=== PATIENT | female | born 1945 | race Caucasian/White ===

== ENCOUNTER 2019-05-02 14:18 | Inpatient (IN) ==
[2019-05-05] MEDS: Apixaban 5 MG TABLET PO SCH (20:42)
[2019-05-05] MEDS: Nystatin Cream 15 GM TUBE TP SCH (20:43)
[2019-05-06] MEDS: traMADol 50 MG TABLET PO PRN ×3 (00:41→17:52)
[2019-05-06] MEDS: Apixaban 5 MG TABLET PO SCH ×2 (09:23→21:17)
[2019-05-06] MEDS: Aspirin Enteric Coated 81 MG Tablet PO SCH (09:23)
[2019-05-06] MEDS: Diltiazem CD (24hr) 180 MG CAPSULE PO SCH (09:23)
[2019-05-06] MEDS: levoFLOXacin 750 MG TABLET PO SCH (09:23)
[2019-05-06] MEDS: Nystatin Cream 15 GM TUBE TP SCH ×2 (09:31→21:21)
--- NOTE | 2019-05-06 10:29 | Internal Med History&Physical ---
Date of Encounter: 05/06/19 Time of Encounter: 10:29 Assessment and Plan (1) Skin ulcer of left lower leg Current visit: Yes Status: Acute Very large skin ulcer of the left lower extremity there is been there for couple of years and started with some type of trauma. Multiple organisms have been cultured. She is on an oral course of Augmentin and Levaquin for a few more days. Wound care department has given recommendations. The local wound care wi ll be consulted as well. Qualifiers: Non-pressure ulcer stage: with necrosis of muscle Qualified Code(s): L97.923 - Non-pressure chronic ulcer of unspecified part of left lower leg with necrosis of muscle (2) History of atrial fibrillation Current visit: Yes Status: Acute History of atrial fibrillation several years ago as well as a recurrence when she had her pulmonary embolism at [place]. She is now in sinus rhythm. She has no chest pain, angina, congestive heart failure. She is anticoagulated with Eliquis. Her rate is in the 70s. (3) Pulmonary embolism Current visit: Yes Status: Acute Patient sustained a pulmonary embolism while at [place] in the right lower lung area. She is anticoagulated with Eliquis and will plan for long-term treatment. No complications have been noted. Qualifiers: Pulmonary embolism type: other Chronicity: acute Acute cor pulmonale presence: without acute cor pulmonale Qualified Code(s): I26.99 - Other pulmonary embolism without acute cor pulmonale (4) Anxiety Current visit: Yes Status: Acute She admits there are some times when she becomes anxious about her therapy and her future with her current problems. When that occurs she has some chest pressure and some shortness of breath. This was witnessed by the nurse as well. She does not want anything done for this at the present time. We will work through anxiety with her therapy. (5) PAD (peripheral artery disease) Current visit: Yes Status: Chronic Peripheral artery disease but not needing intervention as per vascular specialist. Her left foot looks fishman and dusky but not cold. The ABIs were actually normal on the left and abnormal on the right. She is not having claudication symptoms. (6) Acute kidney injury superimposed on CKD Current visit: Yes Status: Resolved Her renal function has improved and is stabilized now. Her creatinine got up to 2.06 and is now normalized (7) DVT prophylaxis Current visit: Yes Status: Acute She is already on Eliquis for her PE and atrial fibrillation. No further DVT prophylaxis indicated. Internal Medicine - H&P: HPI Chief complaint: I am here for wound care and therapies before going home Admitted From: Hospital to Hospital Transfer Plans for Post Hospital Care: Home History of present illness: Ms. Michel is a 73 year old female was transferred to a a swing bed in our facility with a history of a prolonged skin ulceration on the left lower extremity.Patient has a history in the past of having atrial fibrillation/flutter and congestive heart failure that resolved in 2010. She had heart catheterization which showed mild coronary disease but no intervention needed. She was not seen in our office for the past few years. She has a long-standing ulcer on the left lower extremity which started a couple of years ago likely from chronic venous stasis. 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 It had gotten to the point where it was quite large and painful and she was admitted to the hospital. Wound culture is polymicrobial growing Citrobacter, Providencia, Enterococcus faecalis and another GNR. She was initially treated with cefepime/daptomycin/Flagyl and then IV Zosyn. She is now on oral Augmentin and Levaquin for 7 more days. She was evaluated by podiatry would like to evaluate patient after antibiotics are done and first proceed with a biopsy before debridement. Vascular surgery saw her and said there is no urgent need for intervention but the follow-up as an outpatient if she develops claudication. Prior to plan to discharge of 04/29, she developed shortness of breath and was diagnosed having pulmonary embolism and atrial fibrillation. She has a normal ejection fraction. She was first started on amiodarone and switched to diltiazem. She was started on Eliquis for long-term anticoagulation. She has been in sinus rhythm over the past few days. She denies any angina or CHF symptoms. She states she is very weak and while at [place] was only able to take very few steps and was seldom out of bed. She complains of pain of the left lower extremity during dressing changes. She denies any cardiac or respiratory symptoms currently except when she gets "an anxiety attack" and she has some chest pressure at that time. Past Med Surg Social Fam HX - Past Medical History Medical history: arthritis, atrial fibrillation (History of atrial fibrillation/flutter in 2010 with CHF, then resolved. She had atrial fibrillation at [place] when she had the pulmonary embolism), CHF, coronary artery disease (Mild coronary artery disease without intervention 2010), GERD, hyperlipidemia, hypertension, pulmonary embolus (Pulmonary embolism in the right lower lung area while hospitalized at [place]), renal disease, other Additional medical history: Toni was cardioverted in 2010. Gland in neck was cancerous in 2010. Psychiatric history: no psych history - Past Surgical History Additional surgical history: D&C, Cancerous neck gland removed, tubal ligation, tonsillectomy - Social History Smoking Status: Former smoker Smokeless Tobacco Status: No Alcohol use: none Drug use: none Occupational status: retired Current living situation: Home - Independent, With Family Activity Level: Uses cane/walker Recent Out of Country Travel Within the Last 8 Weeks: No Exposure or Possible Exposure to Illness During Travel: No Additional social history: She and her live in a one-story home. She has 2 steps to get into the house. She has a tub shower that she does not use. - Family History Mother Living Status: Hx Family Cancer: Yes (pancreatic) Father Living Status: Hx Family Cardiac Disorders: Yes Hx Family Cancer: Yes (lung) Internal Medicine - H&P: Meds Aspirin Enteric Coated [Aspirin EC] 81 mg PO DAILY 04/24/19 [History] Atorvastatin [Lipitor] 40 mg PO HS #30 tablet 04/29/19 [Rx] Loperamide [Imodium] 1 mg PO QID PRN #30 udc 04/29/19 [Rx] Nystatin Cream [Mycostatin Cream] 1 appl TP BID 5 Days #1 tube 04/29/19 [Rx] Sodium Bicarbonate 325 mg PO TID #90 tablet 04/29/19 [Rx] Amoxicillin/Clavulanate [Augmentin] 875 mg PO BIDWM 7 Days #14 tablet 05/05/19 [Rx] Apixaban [Eliquis] 5 mg PO BID tablet 05/05/19 [Rx] Diltiazem CD (24hr) [Cardizem CD] 180 mg PO DAILY cap.er.24h 05/05/19 [Rx] Levofloxacin [Levaquin] 750 mg PO DAILY 7 Days #7 tablet 05/05/19 [Rx] Allergy/AdvReac Type Severity Reaction Status Date / Time Cefadroxil [From Duricef] Allergy Rash Verified 04/24/19 17:24 sulfamethoxazole Allergy Rash Verified 04/24/19 17:24 [From Bactrim] trimethoprim [From Bactrim] Allergy Rash Verified 04/24/19 17:24 - Constitutional Constitutional: no fever(s), no falls - EENT Eyes: blurry vision (Complains of some blurred vision in the right eye at times, this side she had Blanton's palsy) Ears: no ear discharge, no ear pain Additional comments: She has an upper denture - Cardiovascular Cardiovascular ROS IM: chest pain (She states sometimes she gets a "chest pain" or tightness particularly if she becomes nervous.), no dyspnea, no dyspnea on exertion - Respiratory Respiratory: dyspnea (Occasion she will get "shortness of breath" if she gets anxious or has a panic attack.), no cough - Gastrointestinal Gastrointestinal: no constipation, no diarrhea, no loose stools, no melena - Genitourinary Genitourinary: urinary incontinence (She states she has some urinary incontinence, urgency, no dysuria) - Musculoskeletal Musculoskeletal ROS IM: no arthralgias, no muscle weakness - Integumentary Additional comments: Very large open skin ulcer in the left lower extremity - Neurological Additional comments: 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 Sometimes her right eye seems blurry - Psychiatric Psychiatric: anxiety (Sometimes she feels anxious, worried that she is not going to do well with therapy), no confusion, no depression - Constitutional Vitals: Temp Pulse Resp BP Pulse Ox 97.8 F 75 20 121/73 94 05/06/19 07:00 05/06/19 07:15 05/06/19 07:15 05/06/19 07:15 05/06/19 07:15 General appearance: Present: morbidly obese, no acute distress - Head Head exam: Present: atraumatic - Eye Eye exam: Present: EOMI Additional comments: Right eyelid shows mild ptosis from Blanton's palsy - ENT Additional comments: She is an upper plate of dentures, missing several lower teeth. - Neck Neck exam general surgery: Absent: lymphadenopathy, tenderness, thyromegaly - Respiratory Respiratory exam: Present: CTAB - Cardiovascular Cardiovascular exam: Present: RRR, +S1, +S2, systolic murmur (1 to 2/6 systolic murmur heard over the outlet as well as radiation to the apex.) - GI/Abdominal GI/Abdominal exam: Present: soft. Absent: tenderness Additional comments: Examination limited because of obesity - Extremities Exam Additional comments: Left lower extremity shows a rather huge deep stage III ulcer which measures about 12-14 cm in the midline morataya almost circumferential around the calf and averaging about 8 cm posteriorly. She has no pedal edema. She has good range of motion at the hips knees and feet. The left foot is dusky in appearance and I cannot appreciate pulses. She has thick curving toenails. And she has debris between her toes. - Neurological Exam Additional comments: She has a slight right facial droop and decreased ability to elevate her right eyebrow/wrinkle forehead. Mild ptosis noted. Mild right facial droop on smile - Psychiatric Psychiatric exam: Present: normal affect - Skin Additional comments: Left lower extremity shows a rather huge deep stage III ulcer which measures about 12-14 cm in the midline morataya almost circumferential around the calf and averaging about 8 cm posteriorly. There is a small band of normal skin on the left lateral morataya area. Areas no odor. There are no linear streaks. There is no significant surrounding redness. Internal Med - H&P Results - Labs Labs: Laboratory from [place] has been reviewed.
[2019-05-07] MEDS: traMADol 50 MG TABLET PO PRN ×5 (01:15→22:31)
[2019-05-07] MEDS: Apixaban 5 MG TABLET PO SCH ×2 (07:54→22:31)
[2019-05-07] MEDS: Aspirin Enteric Coated 81 MG Tablet PO SCH (07:54)
[2019-05-07] MEDS: Nystatin Cream 15 GM TUBE TP SCH ×2 (07:54→22:31)
[2019-05-07] MEDS: Diltiazem CD (24hr) 180 MG CAPSULE PO SCH (07:54)
--- NOTE | 2019-05-07 10:33 | Internal Med Progress Note ---
Date of Encounter: 05/07/19 Time of Encounter: 10:33 - Assessment and plan (1) Skin ulcer of left lower leg Current Visit: Yes Status: Acute Assessment and plan: Skin ulcer of left lower extremity likely started as venous stasis ulcer. Continue treatments per wound clinic recommendation at [facility] as done by the nursing staff. I have asked our local wound care to see her also for advice and will likely see in the future as an outpatient. Had no fevers or chills. Qualifiers: Non-pressure ulcer stage: with necrosis of muscle Qualified Code(s): L97.923 - Non-pressure chronic ulcer of unspecified part of left lower leg with necrosis of muscle (2) History of atrial fibrillation Current Visit: Yes Status: Acute Assessment and plan: Patient had atrial fibrillation while at [place]. She is in normal rhythm and rate controlled with diltiazem and is anticoagulated with Eliquis. No typical angina or CHF symptoms. (3) Pulmonary embolism Current Visit: Yes Status: Acute Assessment and plan: Known right lower lung lung pulmonary embolism. She is not having any dyspnea unless becomes anxious. She is not coughing up blood. Good saturations. Anticoagulated with Eliquis. Qualifiers: Pulmonary embolism type: other Chronicity: acute Acute cor pulmonale presence: without acute cor pulmonale Qualified Code(s): I26.99 - Other pulmonary embolism without acute cor pulmonale (4) Decubitus ulcer of buttock, stage 2 Current Visit: Yes Status: Acute Assessment and plan: Patient has stage II decubitus on the right buttock which measures about 1 cm in diameter. Qualifiers: Laterality: right Qualified Code(s): L89.312 - Pressure ulcer of right buttock, stage 2 (5) Anxiety Current Visit: Yes Status: Acute Assessment and plan: Patient admits that she does get anxious sometimes and he gives her chest pressure and shortness of breath but it is short-lived. She does not want specific intervention right now. She is worried about therapy. (6) PAD (peripheral artery disease) Current Visit: Yes Status: Chronic Assessment and plan: Peripheral artery disease especially on the right side with an abnormal BEULAH. However, amazingly on the left she has a normal BEULAH. The left foot was dusky yesterday but looks good today. I do not feel pulses though. Has been seen by vascular and no intervention for now. (7) Acute kidney injury superimposed on CKD Current Visit: Yes Status: Resolved Assessment and plan: Her creatinine increased to 2.06 at [place], it is now normal. We will continue to follow. (8) Intertriginous candidiasis Current Visit: Yes Status: Acute Assessment and plan: She has intertrigo arsenio infection under her pannus and she prefers antifungal cream. (9) DVT prophylaxis Current Visit: Yes Status: Acute Assessment and plan: Patient is already anticoagulated with Eliquis - Subjective Interval history: Patient states that she feels like she is getting better. She was able to take a few steps in the room yesterday with physical therapy. She has sat up in a chair and uses bedside commode. Sometimes she gets "chest pressure" particularly if she becomes anxious. It is transient. No other related symptoms. - Constitutional Vitals: Temp Pulse Resp BP Pulse Ox 98.0 F 83 15 114/67 95 05/07/19 09:00 05/07/19 09:00 05/07/19 09:00 05/07/19 09:00 05/07/19 09:00 General appearance: Present: A&O X 3, no acute distress - Respiratory Respiratory exam: Present: CTAB - Cardiovascular Cardiovascular exam: Present: RRR, +S1, +S2, systolic murmur (1 to 2/6 systolic murmur at outlet with and radiation to the apex) - GI/Abdominal GI/Abdominal exam: Present: soft. Absent: tenderness - Extremities Exam Additional comments: Left lower extremity is wrapped/dressed. I did not evaluate this today. Both feet are warm and dry. I cannot feel palpable pulses though. Still has long dystrophic nails and debris between her toes. The left foot looks more like the right and not as dusky as yesterday. 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 - Skin Additional comments: Left lower extremity as dressing intact. I did not evaluate today. She has no heel breakdown. The left foot looks similar to the right and not dusky as it did yesterday. Under her pannus she has monilial type dermatitis with satellite lesions. She has a decubitus on the right buttock measuring about 1 cm in diameter covered with Allevyn. Consult Discharge Plan - Plan Referrals: Parker Romero MD [Primary Care Provider] -
--- NOTE | 2019-05-08 08:11 | Internal Med Progress Note ---
Date of Encounter: 05/08/19 Time of Encounter: 08:11 - Assessment and plan (1) Physical deconditioning Current Visit: Yes Status: Acute Assessment and plan: Is here for PT OT (2) Stasis leg ulcer Current Visit: No Status: Acute Assessment and plan: Her wound is currently dressed she is on Augmentin she is on Levaquin she has not had a fever. Qualifiers: Laterality: left Qualified Code(s): I83.029 - Varicose veins of left lower extremity with ulcer of unspecified site; L97.929 - Non-pressure chronic ulcer of unspecified part of left lower leg with unspecified severity (3) DVT prophylaxis Current Visit: Yes Status: Acute Assessment and plan: Eliquis and ambulation (4) Pulmonary embolism Current Visit: Yes Status: Acute Assessment and plan: Currently on Eliquis she does not have any shortness of breath or chest pain Qualifiers: Pulmonary embolism type: other Chronicity: acute Acute cor pulmonale presence: without acute cor pulmonale Qualified Code(s): I26.99 - Other pulmonary embolism without acute cor pulmonale (5) Atrial fibrillation and flutter Current Visit: No Status: Acute Assessment and plan: On diltiazem for rate control she is on Eliquis for thromboembolic prophylaxis. (6) Decubitus ulcer of buttock, stage 2 Current Visit: Yes Status: Acute Assessment and plan: sHe is seeing wound care for this discussed that she does need frequent position changes needs to get up and ambulate with physical therapy to try to keep pressure off her rear Qualifiers: Laterality: right Qualified Code(s): L89.312 - Pressure ulcer of right buttock, stage 2 - Subjective Interval history: She a little shaky and pale when she got up to get to the restroom this morning she felt she could not completely empty her bladder. Postvoid residual showed 7 mL's. She denies any dysuria she does have incontinence she does not like did not bone to the restroom. Staff is struggling to get her to the toilet to prevent incontinence. She denies any pain she has any chest pain she has any palpitations she is short of breath but states that is no more than her normal she denies nausea vomiting she did have a stool. She occasionally gets dizzy she has been eating okay - Constitutional Vitals: Temp Pulse Resp BP Pulse Ox 97.8 F 76 16 115/63 94 05/08/19 07:00 05/08/19 07:00 05/08/19 07:00 05/08/19 07:00 05/08/19 07:00 General appearance: Present: A&O X 3, no acute distress - Head Head exam: Present: atraumatic, normocephalic - Respiratory Respiratory exam: Present: CTAB - Cardiovascular Cardiovascular exam: Present: RRR. Absent: systolic murmur - GI/Abdominal GI/Abdominal exam: Present: normal bowel sounds, soft, no peritoneal signs. Absent: guarding, rebound, tenderness - Extremities Exam Extremities exam: Present: pedal edema (Wound dressing on the left lower extremity. clean and dry) - Skin Skin exam: Present: dry, warm Consult Discharge Plan - Plan Referrals: Parker Romero MD [Primary Care Provider] -
[2019-05-08] MEDS: levoFLOXacin 750 MG TABLET PO SCH (09:12)
[2019-05-08] MEDS: Diltiazem CD (24hr) 180 MG CAPSULE PO SCH (09:12)
[2019-05-08] MEDS: Aspirin Enteric Coated 81 MG Tablet PO SCH (09:13)
[2019-05-08] MEDS: traMADol 50 MG TABLET PO PRN ×3 (09:13→20:42)
[2019-05-08] MEDS: Nystatin Cream 15 GM TUBE TP SCH ×2 (09:13→20:42)
[2019-05-08] MEDS: Apixaban 5 MG TABLET PO SCH ×2 (09:13→20:41)
[2019-05-09] MEDS: traMADol 50 MG TABLET PO PRN ×4 (05:47→20:40)
--- NOTE | 2019-05-09 07:42 | Internal Med Progress Note ---
Date of Encounter: 05/09/19 Time of Encounter: 07:39 - Assessment and plan (1) Skin ulcer of left lower leg Current Visit: Yes Status: Acute Assessment and plan: Continue with wound care. I did not evaluate this today. No secondary problems including heel ulcers or foot issues other than long toenails Qualifiers: Non-pressure ulcer stage: with necrosis of muscle Qualified Code(s): L97.923 - Non-pressure chronic ulcer of unspecified part of left lower leg with necrosis of muscle (2) History of atrial fibrillation Current Visit: Yes Status: Acute Assessment and plan: Staying in regular rate and rhythm. Vital stable. No angina. (3) Pulmonary embolism Current Visit: Yes Status: Acute Assessment and plan: No dyspnea except when exerting herself which may be from deconditioning and obesity. Tolerating her anticoagulant. Good oxygenation on room air Qualifiers: Pulmonary embolism type: other Chronicity: acute Acute cor pulmonale presence: without acute cor pulmonale Qualified Code(s): I26.99 - Other pulmonary embolism without acute cor pulmonale (4) Decubitus ulcer of buttock, stage 2 Current Visit: Yes Status: Acute Assessment and plan: I did not reevaluate this today. Continues with Allevyn Qualifiers: Laterality: right Qualified Code(s): L89.312 - Pressure ulcer of right buttock, stage 2 (5) Anxiety Current Visit: Yes Status: Acute Assessment and plan: Seems to be under reasonable control. She did not mention problems. (6) PAD (peripheral artery disease) Current Visit: Yes Status: Chronic (7) Acute kidney injury superimposed on CKD Current Visit: Yes Status: Resolved (8) Intertriginous candidiasis Current Visit: Yes Status: Acute Assessment and plan: Her skin is still affected, but this does not look red or inflamed it is now more brown and chronic in nature. She states it feels much better (9) DVT prophylaxis Current Visit: Yes Status: Acute - Subjective Interval history: Patient thinks that she is getting better and happy that she is advancing with her therapy. She was able to walk part way to the gym, walked across the floor in the gym and has been sitting up in a chair. She states when she is exerting herself she does get some shortness of breath. When asked about "chest pain" she says she gets a "pressure when she takes a deep breath". Does not sound cardiac or anginal. She has not been using her incentive spirometer. She denies any GI or symptoms. She thinks the tramadol is appropriate for her pain control. - Constitutional Vitals: Temp Pulse Resp BP Pulse Ox 97 F L 84 18 114/65 95 05/08/19 19:15 05/08/19 19:15 05/08/19 19:15 05/08/19 19:15 05/08/19 19:15 General appearance: Present: A&O X 3, no acute distress - Respiratory Additional comments: A few atelectatic crackles in the bases but otherwise clear. No respiratory distress. She takes a deep breath and she feels "chest pressure" which reproduces her symptoms - Cardiovascular Cardiovascular exam: Present: RRR, +S1, +S2, systolic murmur (2/6 systolic murmur) - GI/Abdominal GI/Abdominal exam: Present: soft. Absent: tenderness - Extremities Exam Additional comments: Both feet were evaluated and no heel breakdown. She still has the long dystrophic toenails yet to be trimmed. However her feet are now clean! I did not look at the skin ulcer. Dressing is clean and intact - Skin Additional comments: intertriginous monilial-type dermatitis under her pannus has gone from red and inflamed to now around discolored without acute changes. She states that it feels much better. Consult Discharge Plan - Plan Referrals: Parker Romero MD [Primary Care Provider] -
[2019-05-09] MEDS: Nystatin Cream 15 GM TUBE TP SCH ×2 (09:16→20:37)
[2019-05-09] MEDS: Apixaban 5 MG TABLET PO SCH ×2 (09:17→20:37)
[2019-05-09] MEDS: Aspirin Enteric Coated 81 MG Tablet PO SCH (09:17)
[2019-05-09] MEDS: Diltiazem CD (24hr) 180 MG CAPSULE PO SCH (09:17)
[2019-05-10] MEDS: traMADol 50 MG TABLET PO PRN ×3 (01:35→21:11)
[2019-05-10] MEDS: levoFLOXacin 750 MG TABLET PO SCH (09:05)
[2019-05-10] MEDS: Aspirin Enteric Coated 81 MG Tablet PO SCH (09:05)
[2019-05-10] MEDS: Diltiazem CD (24hr) 180 MG CAPSULE PO SCH (09:05)
[2019-05-10] MEDS: Apixaban 5 MG TABLET PO SCH ×2 (09:05→21:11)
[2019-05-10] MEDS: Nystatin Cream 15 GM TUBE TP SCH ×2 (09:06→21:12)
--- NOTE | 2019-05-10 17:22 | Internal Med Progress Note ---
Date of Encounter: 05/10/19 Time of Encounter: 17:20 - Assessment and plan (1) Skin ulcer of left lower leg Current Visit: Yes Status: Acute Assessment and plan: Wound care consulted with specialist at [facility] and now doing dressing changes every other day. No fever or chills. We will recheck her lab work. 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 No angina or CHF findings. No tachycardia. (3) Pulmonary embolism Current Visit: Yes Status: Acute Assessment and plan: No unusual dyspneic episodes. No hemoptysis. Saturations good. No problems with anticoagulation. Qualifiers: Pulmonary embolism type: other Chronicity: acute Acute cor pulmonale pre sence: without acute cor pulmonale Qualified Code(s): I26.99 - Other pulmonary embolism without acute cor pulmonale (4) Decubitus ulcer of buttock, stage 2 Current Visit: Yes Status: Acute Assessment and plan: Nurse has been evaluating the decubitus and Allevyn is present. I did not reevaluate. Qualifiers: Laterality: right Qualified Code(s): L89.312 - Pressure ulcer of right buttock, stage 2 (5) Anxiety Current Visit: Yes Status: Acute Assessment and plan: Seems be under much better control and gaining confidence with the walking (6) PAD (peripheral artery disease) Current Visit: Yes Status: Chronic (7) Acute kidney injury superimposed on CKD Current Visit: Yes Status: Resolved Assessment and plan: follow-up lab work has been ordered for tomorrow (8) Intertriginous candidiasis Current Visit: Yes Status: Acute (9) DVT prophylaxis Current Visit: Yes Status: Acute - Subjective Interval history: Patient thinks that she is doing well. Physical therapy told me they were proud on how well she was walking today. She is making good progress. She is not having as much fear to walk and she did previously. She told me she is fearful she is going to twist her left ankle as it feels weak sometimes. She denies any cardiac type symptoms. Occasionally she will have a short episode of dyspnea but nothing like what she has had previously. She has been eating fairly well. No fevers or chills. No palpitations or angina. Pain is under adequate control her who is here thinks that she is advancing nicely as he watched her in therapy - Constitutional Vitals: Temp Pulse Resp BP Pulse Ox 98.7 F 69 16 109/65 98 05/10/19 07:31 05/10/19 07:31 05/10/19 07:31 05/10/19 07:31 05/10/19 07:31 General appearance: Present: A&O X 3, no acute distress - Respiratory Respiratory exam: Present: CTAB - Cardiovascular Cardiovascular exam: Present: RRR, +S1, +S2, systolic murmur (1 to 2/6 systolic murmur) - Extremities Exam Additional comments: Left lower extremity has dressing intact and do not wrap to the toes. Toes are warm and dry. Still has very long dystrophic curved nails. Right lower extremity shows no heel breakdown. No redness. No signs of infection. Long curved dystrophic toenails present. Consult Discharge Plan - Plan Referrals: Parker Romero MD [Primary Care Provider] -
[2019-05-11 05:29] LABS: Basophils % 0.8 %; Hematocrit 30.5 % (35.3-44.9); Hemoglobin 9.8 g/dL (11.5-15.4); Immature Granulocytes % 0.5 % (0-4); Lymphocytes % 26.8 %; Mean Corpuscular HGB Conc 32.1 g/dL (31.6-35.5); Mean Corpuscular Volume 87.1 fL (83.0-100.0); Mean Platelet Volume 8.3 fL (9.4-12.4); Monocytes # 0.4 K/mcL (0.0-1.3); Monocytes % 11.9 %; Neutrophils # 2.2 K/mcL (1.6-8.9); Platelet Count 231 K/mcL (140-400); Red Cell Distribution Width 14.8 % (11.5-14.5); White Blood Count 3.7 K/mcL (4.3-11.1)
[2019-05-11 05:41] LABS: Calcium 8.6 mg/dL (8.6-10.3); Potassium 2.9 mEq/L (3.5-5.1)
[2019-05-11] MEDS: Aspirin Enteric Coated 81 MG Tablet PO SCH (08:47)
[2019-05-11] MEDS: Apixaban 5 MG TABLET PO SCH ×2 (08:47→20:20)
[2019-05-11] MEDS: Diltiazem CD (24hr) 180 MG CAPSULE PO SCH (08:47)
[2019-05-11] MEDS: traMADol 50 MG TABLET PO PRN ×4 (08:47→22:37)
[2019-05-11] MEDS: Nystatin Cream 15 GM TUBE TP SCH ×2 (12:17→20:21)
--- NOTE | 2019-05-11 16:23 | Internal Med Progress Note ---
Date of Encounter: 05/11/19 Time of Encounter: 16:21 - Assessment and plan (1) Skin ulcer of left lower leg Current Visit: Yes Status: Acute Assessment and plan: Continuation of large skin ulcer on the left lower extremity. To my eye is looking better. No significant shrinkage in overall size. Less eschar particularly at the ankle region. Still needs some soaking in the periphery over the normal skin to debride off thick devitalized layer of skin. No linear streaks. No surrounding redness or cellulitis noted. Lab work reviewed. Continue wound treatment plan of every other day dressing change and sees Dr. 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 No angina or CHF noted (3) Pulmonary embolism Current Visit: Yes Status: Acute Assessment and plan: Less dyspneic episodes. Good saturation on room air. No lung findings noted. Qualifiers: Pulmonary embolism type: other Chronicity: acute Acute cor pulmonale pres ence: without acute cor pulmonale Qualified Code(s): I26.99 - Other pulmonary embolism without acute cor pulmonale (4) Decubitus ulcer of buttock, stage 2 Current Visit: Yes Status: Acute Assessment and plan: I did not review this today. It has been covered with Allevyn. Qualifiers: Laterality: right Qualified Code(s): L89.312 - Pressure ulcer of right buttock, stage 2 (5) Anxiety Current Visit: Yes Status: Acute Assessment and plan: Less anxiety. Building confidence with her dressing changes and her walking (6) PAD (peripheral artery disease) Current Visit: Yes Status: Chronic (7) Acute kidney injury superimposed on CKD Current Visit: Yes Status: Resolved Assessment and plan: Renal function is now normal. Potassium however is low and supplement started. Not sure the etiology. She does not take a diuretic, her diarrhea has resolved. (8) Intertriginous candidiasis Current Visit: Yes Status: Acute (9) DVT prophylaxis Current Visit: Yes Status: Acute - Subjective Interval history: Patient denies any angina or palpitations. She denies any fevers or chills. She occasionally will have a bit of shortness of breath when she is walking, but overall much better than she did previously. She has not been having the anxiety attacks that she had previously. She denies any abdominal pain. Her bowel movements are normal now. No urinary symptoms. She needs an occasional analgesia particularly during dressing changes for her left lower extremity. She has been up walking today at bit. - Constitutional Vitals: Temp Pulse Resp BP Pulse Ox 98.6 F 80 16 138/71 96 05/11/19 08:42 05/11/19 08:42 05/11/19 08:42 05/11/19 08:42 05/11/19 08:42 General appearance: Present: A&O X 3, no acute distress, answers questions appropriately - Respiratory Respiratory exam: Present: CTAB. Absent: respiratory distress - Cardiovascular Cardiovascular exam: Present: RRR, +S1, +S2, systolic murmur (1/6 systolic murmur) - GI/Abdominal GI/Abdominal exam: Present: soft. Absent: tenderness - Extremities Exam Additional comments: No ankle or pedal edema. The left foot still has somewhat grayish appearance. Skin examination as below - Skin Additional comments: Left lower extremity dressing was removed. The skin edges of the huge ulcer sharp and dry. There is less depth of the wound on the anterior morataya. It is a lot less bright red. There is some granulation tissue. There is has not been a significant decrease in size though. A large eschar area on the right ankle/malleolus area is not cleared off and less than 1 cm superficial ulcer present. No linear streaks. No edema. Patient gave me permission to photograph for comparison. Internal Medicine: Result - Labs CBC & Chem 7: 05/11/19 05:17 05/11/19 05:17 Labs: Short CBC 05/11/19 Range/Units 05:17 WBC 3.7 L (4.3-11.1) K/mcL Hgb 9.8 L (11.5-15.4) g/dL Hct 30.5 L (35.3-44.9) % Plt Count 231 (140-400) K/mcL Neutrophils # 2.2 (1.6-8.9) K/mcL BMP 05/11/19 05:17 Sodium 141 Potassium 2.9 L Chloride 107 Carbon Dioxide 25 BUN 15 Creatinine 1.10 Glucose 104 Calcium 8.6 Laboratory shows low white blood cell count. Her potassium is drifted down to 2.9. Her CRP has gone from 72 down to 25. Consult Discharge Plan - Plan Referrals: Parker Romero MD [Primary Care Provider] -
[2019-05-12] MEDS: Apixaban 5 MG TABLET PO SCH ×2 (08:51→19:43)
[2019-05-12] MEDS: Nystatin Cream 15 GM TUBE TP SCH ×2 (08:51→19:43)
[2019-05-12] MEDS: Diltiazem CD (24hr) 180 MG CAPSULE PO SCH (08:51)
[2019-05-12] MEDS: Aspirin Enteric Coated 81 MG Tablet PO SCH (08:51)
[2019-05-12] MEDS: levoFLOXacin 750 MG TABLET PO SCH (08:51)
[2019-05-12] MEDS: traMADol 50 MG TABLET PO PRN ×2 (09:00→14:43)
--- NOTE | 2019-05-12 14:23 | Internal Med Progress Note ---
Date of Encounter: 05/12/19 Time of Encounter: 14:21 - Assessment and plan (1) Skin ulcer of left lower leg Current Visit: Yes Status: Acute Assessment and plan: Continues with the wound treatment every other day dressing changes. No fevers or chills. Continue same treatment. Sees podiatry tomorrow. 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 No tachycardia or atrial fibrillation findings. (3) Pulmonary embolism Current Visit: Yes Status: Acute Assessment and plan: Her lungs are clear. No significant dyspnea or chest pains. Continues with Eliquis. Qualifiers: Pulmonary embolism type: other Chronicity: acute Acute cor pulmonale pres ence: without acute cor pulmonale Qualified Code(s): I26.99 - Other pulmonary embolism without acute cor pulmonale (4) Decubitus ulcer of buttock, stage 2 Current Visit: Yes Status: Acute Assessment and plan: I did not evaluate today. Managed by the nursing staff and covered with Allevyn Qualifiers: Laterality: right Qualified Code(s): L89.312 - Pressure ulcer of right buttock, stage 2 (5) Anxiety Current Visit: Yes Status: Acute Assessment and plan: Seems to be under good control. (6) PAD (peripheral artery disease) Current Visit: Yes Status: Chronic (7) Acute kidney injury superimposed on CKD Current Visit: Yes Status: Resolved (8) Intertriginous candidiasis Current Visit: Yes Status: Acute (9) Foot pain Current Visit: Yes Status: Acute Assessment and plan: Pain in the medial arch of her foot. No history of trauma. She is still ambulating on it without much difficulty. She sees podiatry tomorrow. No intervention at this time. Qualifiers: Laterality: left Qualified Code(s): M79.672 - Pain in left foot (10) Long toenail Current Visit: Yes Status: Chronic Assessment and plan: She is scheduled to see podiatry tomorrow. Hopefully they will manage her long curved toenails. (11) DVT prophylaxis Current Visit: Yes Status: Acute - Subjective Interval history: Patient denies a cardiac type chest pain or palpitations. She still gets a little bit dyspneic when exerting herself, but much improved from her stay at [facility]. No cough or hemoptysis. She states her left foot is sore today in the instep. No history of trauma or twisting. She has been able to walk on it. - Constitutional Vitals: Temp Pulse Resp BP Pulse Ox 97.9 F 63 16 112/68 95 05/12/19 07:00 05/12/19 07:00 05/12/19 07:00 05/12/19 07:00 05/12/19 07:00 General appearance: Present: A&O X 3, no acute distress, answers questions appropriately - Respiratory Respiratory exam: Present: CTAB - Cardiovascular Cardiovascular exam: Present: RRR, +S1, +S2, systolic murmur (2/6 systolic murmu r) - Extremities Exam Additional comments: Left lower extremity is wrapped in dressing. The foot does not show any significant edema. She is mildly tender over the medial arch area and inferior to the medial malleolus. No deformity per se. No new skin changes or heel breakdown. Internal Medicine: Result - Labs CBC & Chem 7: 05/11/19 05:17 05/11/19 05:17 Consult Discharge Plan - Plan Referrals: Parker Romero MD [Primary Care Provider] -
[2019-05-13] MEDS: traMADol 50 MG TABLET PO PRN ×4 (01:49→20:27)
--- NOTE | 2019-05-13 07:26 | Internal Med Progress Note ---
Date of Encounter: 05/13/19 Time of Encounter: 07:26 - Assessment and plan (1) Skin ulcer of left lower leg Current Visit: Yes Status: Acute Assessment and plan: Continue the topical wound care as directed by the specialist. She has increased her activity level a bit. 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 (3) Pulmonary embolism Current Visit: Yes Status: Acute Assessment and plan: Her dyspnea is improving. Saturations are good. No hemoptysis or cough or chest pains. Continue anticoagulation. Qualifiers: Pulmonary embolism type: other Chronicity: acute Acute cor pulmonale presence: without acute cor pulmonale Qualified Code(s): I26.99 - Other pulmonary embolism without acute cor pulmonale (4) Decubitus ulcer of buttock, stage 2 Current Visit: Yes Status: Acute Assessment and plan: Nurses have been following. I did not check this today. Qualifiers: Laterality: right Qualified Code(s): L89.312 - Pressure ulcer of right buttock, stage 2 (5) Anxiety Current Visit: Yes Status: Acute Assessment and plan: Seems to be improving. Less anticipatory anxiety when doing therapy (6) PAD (peripheral artery disease) Current Visit: Yes Status: Chronic (7) Acute kidney injury superimposed on CKD Current Visit: Yes Status: Resolved (8) Intertriginous candidiasis Current Visit: Yes Status: Acute (9) Foot pain Current Visit: Yes Status: Acute Assessment and plan: She will see the medical laboratory specialist today. Qualifiers: Laterality: left Qualified Code(s): M79.672 - Pain in left foot (10) Long toenail Current Visit: Yes Status: Chronic Assessment and plan: She will see the medical laboratory specialist today. (11) DVT prophylaxis Current Visit: Yes Status: Acute - Subjective Interval history: Patient denies any chest pain, palpitations, irregular heartbeat sensation. She still gets a little dyspneic when she over exerts. Much better than before though. She is due to see the medical laboratory specialist Dr. Dubon today for nail care and hopefully have him look at her wound. - Constitutional Vitals: Temp Pulse Resp BP Pulse Ox 97.2 F L 78 16 132/67 97 05/12/19 19:23 05/12/19 19:23 05/12/19 19:23 05/12/19 19:23 05/12/19 19:23 General appearance: Present: A&O X 3, no acute distress, answers questions appropriately - Respiratory Respiratory exam: Present: CTAB - Cardiovascular Cardiovascular exam: Present: RRR, +S1, +S2, systolic murmur (1 to 2/6 systolic murmur) - GI/Abdominal GI/Abdominal exam: Present: soft. Absent: tenderness - Extremities Exam Extremities exam: Absent: calf tenderness, pedal edema Additional comments: Left lower extremity is wrapped to protect the wound. Her toenails are long and curved and dystrophic. Warm and dry. Internal Medicine: Result - Labs CBC & Chem 7: 05/11/19 05:17 05/13/19 05:20 Labs: BMP 05/13/19 05:20 Potassium 3.1 L Consult Discharge Plan - Plan Referrals: Parker Romero MD [Primary Care Provider] -
[2019-05-13] MEDS: Apixaban 5 MG TABLET PO SCH ×2 (08:08→20:26)
[2019-05-13] MEDS: Diltiazem CD (24hr) 180 MG CAPSULE PO SCH (08:08)
[2019-05-13] MEDS: Aspirin Enteric Coated 81 MG Tablet PO SCH (08:08)
[2019-05-13] MEDS: Nystatin Cream 15 GM TUBE TP SCH ×2 (10:11→20:28)
--- NOTE | 2019-05-13 19:27 | Event Note ---
Date of Encounter: 05/13/19 Time of Encounter: 19:25 I reevaluated the patient tonight. She is happy that she is now able to tolerate going to the toilet rather than using the bedside commode. She feels like she is advancing with her ADLs. She saw the medical record specialist today. She states he was only allowed to trim her toenails and could not attend to her wound because of his credentialing here. She is happy that the toenails have been trimmed. Her feet show her nails have been trimmed nicely. Toes are warm and dry. She is comfortable in bed. Continue with her therapies as well as her wound care
[2019-05-14] MEDS: traMADol 50 MG TABLET PO PRN ×4 (01:59→20:31)
--- NOTE | 2019-05-14 07:37 | Internal Med Progress Note ---
Date of Encounter: 05/14/19 Time of Encounter: 07:35 - Assessment and plan (1) Skin ulcer of left lower leg Current Visit: Yes Status: Acute Assessment and plan: Continue with the wound treatment. Follow up with the wound clinic this Sunday as planned. 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 No angina or CHF noted (3) Pulmonary embolism Current Visit: Yes Status: Acute Assessment and plan: Respiratory status is improving. Lungs are clear. Not requiring oxygen. Stay on anticoagulation. Qualifiers: Pulmonary embolism type: other Chronicity: acute Acute cor pulmonale presence: without acute cor pulmonale Qualified Code(s): I26.99 - Other pulmonary embolism without acute cor pulmonale (4) Decubitus ulcer of buttock, stage 2 Current Visit: Yes Status: Acute Assessment and plan: Nurses report that this is stable and they are keeping it covered with Allevyn Qualifiers: Laterality: right Qualified Code(s): L89.312 - Pressure ulcer of right buttock, stage 2 (5) Anxiety Current Visit: Yes Status: Acute Assessment and plan: She is having less anticipatory anxiety (6) PAD (peripheral artery disease) Current Visit: Yes Status: Chronic (7) Acute kidney injury superimposed on CKD Current Visit: Yes Status: Resolved (8) Intertriginous candidiasis Current Visit: Yes Status: Acute Assessment and plan: Symptomatically she thinks the rash is better. I like to see it be a bit better though. We will switch from nystatin to Chlortrimazole to see if that makes a difference. She has already tried Lotrisone at home. She needs to get more air to this we talked about that and hygiene (9) Foot pain Current Visit: Yes Status: Acute Assessment and plan: She had no complaints of this today. I did not ask. Qualifiers: Laterality: left Qualified Code(s): M79.672 - Pain in left foot (10) Long toenail Current Visit: Yes Status: Chronic (11) DVT prophylaxis Current Visit: Yes Status: Acute - Subjective Interval history: Patient thinks she is doing better. She is not going to the toilet and not needing the bedside commode. She denies any cardiac symptoms of palpitations or angina. She denies any new dyspnea symptoms less she overdoes it but overall improved. No abdominal pain. She thinks the rash in her pannus area is better because it is not burning with use of nystatin compared to her Lotrisone at home. However nursing staff does not think it is not much better. - Constitutional Vitals: Temp Pulse Resp BP Pulse Ox 98.0 F 70 16 121/69 95 05/14/19 07:24 05/14/19 07:24 05/14/19 07:24 05/14/19 07:24 05/14/19 07:24 General appearance: Present: A&O X 3, no acute distress, answers questions appropriately Exam: Patient is sitting up in a chair in no distress. - Respiratory Respiratory exam: Present: CTAB - Cardiovascular Cardiovascular exam: Present: RRR, +S1, +S2, systolic murmur (2/6 systolic murmur) - Extremities Exam Additional comments: I did not check her feet today. I saw them last night. - Skin Additional comments: Still has rather extensive erythema in her pannus area. It looks more dry than it did previously and less inflamed. I do not see any abscesses. Internal Medicine: Result - Labs CBC & Chem 7: 05/11/19 05:17 05/13/19 05:20 Consult Discharge Plan - Plan Referrals: Parker Romeor MD [Primary Care Provider] -
[2019-05-14] MEDS: Aspirin Enteric Coated 81 MG Tablet PO SCH (09:08)
[2019-05-14] MEDS: Apixaban 5 MG TABLET PO SCH ×2 (09:08→20:31)
[2019-05-14] MEDS: Diltiazem CD (24hr) 180 MG CAPSULE PO SCH (09:09)
[2019-05-14] MEDS: levoFLOXacin 750 MG TABLET PO SCH (09:09)
[2019-05-14] MEDS: Clotrimazole 1% CRM 15 GM TUBE TP SCH ×2 (09:39→20:33)
[2019-05-15] MEDS: traMADol 50 MG TABLET PO PRN ×4 (03:03→20:34)
[2019-05-15] MEDS: Diltiazem CD (24hr) 180 MG CAPSULE PO SCH (08:20)
[2019-05-15] MEDS: Apixaban 5 MG TABLET PO SCH ×2 (08:20→20:34)
[2019-05-15] MEDS: Aspirin Enteric Coated 81 MG Tablet PO SCH (08:20)
[2019-05-15] MEDS: Clotrimazole 1% CRM 15 GM TUBE TP SCH ×2 (08:21→20:36)
--- NOTE | 2019-05-15 17:31 | Internal Med Progress Note ---
Date of Encounter: 05/15/19 Time of Encounter: 17:29 - Assessment and plan (1) Skin ulcer of left lower leg Current Visit: Yes Status: Acute Assessment and plan: Continue treatment of the leg ulcer. We will see wound clinic tomorrow and then continue wound care as an outpatient. Lab work has been ordered. 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 Stay on the same medication. (3) Pulmonary embolism Current Visit: Yes Status: Acute Assessment and plan: History of pulmonary embolism. No complications with her anticoagulation. Breathing issues are resolving. Qualifiers: Pulmonary embolism type: other Chronicity: acute Acute cor pulmonale presence: without acute cor pulmonale Qualified Code(s): I26.99 - Other pulmonary embolism without acute cor pulmonale (4) Decubitus ulcer of buttock, stage 2 Current Visit: Yes Status: Acute Assessment and plan: Patient continues with protective dressing on the decubitus ulcer. I did not evaluate today. Nurses report it is stable. Qualifiers: Laterality: right Qualified Code(s): L89.312 - Pressure ulcer of right buttock, stage 2 (5) Anxiety Current Visit: Yes Status: Acute Assessment and plan: Her anxiety seems be under good control. No panic attacks recently. (6) PAD (peripheral artery disease) Current Visit: Yes Status: Chronic (7) Acute kidney injury superimposed on CKD Current Visit: Yes Status: Resolved Assessment and plan: Follow-up lab work ordered for tomorrow (8) Intertriginous candidiasis Current Visit: Yes Status: Acute (9) Foot pain Current Visit: Yes Status: Acute Assessment and plan: Currently no complaints Qualifiers: Laterality: left Qualified Code(s): M79.672 - Pain in left foot (10) Long toenail Current Visit: Yes Status: Resolved (11) DVT prophylaxis Current Visit: Yes Status: Acute - Subjective Interval history: Patient has no acute complaints. She states that she is having less dyspnea wi th activity. She denies any and working with therapy. She denies any cardiac type chest pain or palpitations. She has been ambulatory with physical therapy. She plans to go home after evaluation by the wound clinic tomorrow afternoon if stable. - Constitutional Vitals: Temp Pulse Resp BP Pulse Ox 98.1 F 73 16 129/70 96 05/15/19 07:27 05/15/19 07:27 05/15/19 07:27 05/15/19 07:27 05/15/19 07:27 General appearance: Present: A&O X 3, no acute distress, answers questions appropriately - Respiratory Respiratory exam: Present: decreased breath sounds, CTAB - Cardiovascular Cardiovascular exam: Present: RRR, +S1, +S2, systolic murmur (1 to 2/6 systolic murmur) - GI/Abdominal GI/Abdominal exam: Present: soft. Absent: tenderness - Extremities Exam Additional comments: Right lower extremity is warm and dry and no skin breakdown. No edema. Left lower extremity is wrapped in an [place] wrap. I did not evaluate. Internal Medicine: Result - Labs CBC & Chem 7: 05/11/19 05:17 05/13/19 05:20 Consult Discharge Plan - Plan Referrals: Parker Romero MD [Primary Care Provider] -
--- NOTE | 2019-05-15 21:18 | Discharge Summary ---
- NOTES TO OUTPATIENT PROVIDER Notes to Outpatient Provider: #1. Patient will follow up with the [facility] for care of her left leg. #2. Patient will continue physical therapy as an outpatient. #3. 7 days worth of tramadol has been prescribed. #4. Her potassium was low at discharge and supplement increase to twice a day Date of Encounter: 05/16/19 Time of Encounter: 07:11 - Discharge Diagnosis (1) Skin ulcer of left lower leg Priority: Primary Status: Acute Comments: Patient had sustained an open wound to left lower extremity for about 2 years until became so severe and she became ill and weak and unable to take care of this at home. She was admitted to [place] for initial workup. She had vascular consultation, surgical evaluation at [facility]. Fairly conservative wound treatments were arranged. Culture showed multiple organisms and patient was placed on Augmentin and Levaquin by the time she came to our facility. She had wound treatments and then had PT and OT to advance her ADLs to the point where she can be safely return to home and follow up with the wound clinic as an outpatient. 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 Medically she was converted back to normal sinus rhythm. She has had no angina, palpitation, tachycardia or CHF during this swing bed stay. She is currently on diltiazem and Eliquis. (3) Pulmonary embolism Priority: Secondary Status: Acute Comments: During her hospital stay and [place] patient developed a right lower lung pulmonary embolism. There is been uncomplicated. She is on Eliquis. Her dyspnea with exertion has improved. She has not had any bleeding or bruising issues. Her hemoglobin is lower than baseline and this may be from chronic disease. No obvious acute blood loss as noted. Likely she will need be on anticoagulation for the rest of her life because of the atrial fibrillation as well as a pulmonary embolism. Qualifiers: Pulmonary embolism type: other Chronicity: acute Acute cor pulmonale presence: without acute cor pulmonale Qualified Code(s): I26.99 - Other pulmonary embolism without acute cor pulmonale (4) Decubitus ulcer of buttock, stage 2 Priority: Secondary Status: Acute Comments: Patient was noted to have about a 1 cm diameter decubitus on the buttock. Is been covered with protective dressing. On day of discharge it was reevaluated and it looks markedly improved. Very superficial and healing now. Continues with the Allevyn. Qualifiers: Laterality: right Qualified Code(s): L89.312 - Pressure ulcer of right buttock, stage 2 (5) Anxiety Priority: Secondary Status: Acute Comments: had anticipatory anxiety worried that physical therapy was going to be too much for her to do and also she was quite ill at that time. She has now worked through her anxiety and much improved without needing medical intervention. (6) PAD (peripheral artery disease) Priority: Secondary Status: Chronic Comments: She has documented peripheral vascular disease, interestingly the right lower extremities worse than left. Dr. Smallwood, vascular specialist, recommended no intervention at the present time. Patient has not had any claudication issues. (7) Acute kidney injury superimposed on CKD Priority: Secondary Status: Resolved Comments: She had acute kidney injury which seemed to be resolved. (8) Intertriginous candidiasis Priority: Secondary Status: Acute Comments: She has moderately severe intertriginous candidiasis under her abdominal pannus. She was first treated with nystatin cream, and later switched to Chlortrimazole as it did not seem to be working very well. Patient said the intense redness and pain is gone. She was evaluated on day of discharge and it is markedly improved. (9) Foot pain Priority: Secondary Status: Resolved Qualifiers: Laterality: left Qualified Code(s): M79.672 - Pain in left foot (10) Long toenail Priority: Secondary Status: Resolved Comments: She had very long curved dystrophic toenails being unable to cut them at home. She saw Dr. Mathews while at [facility] and her toenails have now been clipped appropriately. (11) DVT prophylaxis Priority: Secondary Status: Resolved (12) Anemia Priority: Secondary Status: Acute Comments: During her hospitalization at [place] she developed anemia. Her count has been stable in our facility. No melena or hematochezia noted. Workup for anemia labs have been drawn including iron and B12 studies pending at time of discharge. She told me she had a colonoscopy when she was in [place]. Her discharge hemoglobin is 9.8. Qualifiers: Anemia type: unspecified type Qualified Code(s): D64.9 - Anemia, unspecified (13) Hypokalemia Priority: Secondary Status: Acute Comments: At discharge her potassium was 3.0. The increase her supplement to twice a day. We will recheck later as an outpatient Hospital course: Ms. Michel is a 73 year old female who previously did not have a medical problems was admitted to our facility for deconditioning due to severe leg ulcer on the left lower extremity. During the hospital stay at [place] she also developed a pulmonary embolism and transient atrial fibrillation. She came to our facility for wound care treatment as well as PT and OT. She is now advanced to the point where she can be independent with her ADLs and follow-up at the wound clinic regarding her left lower extremity. Please see the above diagnoses. Discharge discussed with: patient, family - Time Spent with Patient Total time spent providing and/or coordinating discharge services: - Discharge Medications Prescriptions: New Clotrimazole 1% CRM [Lotrimin 1%] 1 appl TP BID #90 tube Potassium Chloride 10 meq PO BIDWM #60 tab.er.prt Tramadol HCl [Ultram] 50 mg PO QID PRN 7 Days #28 tab PRN Reason: Pain Continued Aspirin Enteric Coated [Aspirin EC] 81 mg PO DAILY Amoxicillin/Clavulanate [Augmentin] 875 mg PO BIDWM 7 Days #14 tablet Levofloxacin [Levaquin] 750 mg PO DAILY 7 Days #7 tablet Diltiazem CD (24hr) [Cardizem CD] 180 mg PO DAILY #30 cap.er.24h Apixaban [Eliquis] 5 mg PO BID #60 tablet Atorvastatin [Lipitor] 40 mg PO HS #30 tablet Discontinued Loperamide [Imodium] 1 mg PO QID PRN #30 udc PRN Reason: Diarrhea Nystatin Cream [Mycostatin Cream] 1 appl TP BID 5 Days #1 tube Sodium Bicarbonate 325 mg PO TID #90 tablet Home Medications: Aspirin Enteric Coated [Aspirin EC] 81 mg PO DAILY 04/24/19 [History] Amoxicillin/Clavulanate [Augmentin] 875 mg PO BIDWM 7 Days #14 tablet 05/05/19 [Rx] Levofloxacin [Levaquin] 750 mg PO DAILY 7 Days #7 tablet 05/05/19 [Rx] Apixaban [Eliquis] 5 mg PO BID #60 tablet 05/15/19 [Rx] Clotrimazole 1% CRM [Lotrimin 1%] 1 appl TP BID #90 tube 05/15/19 [Rx] Diltiazem CD (24hr) [Cardizem CD] 180 mg PO DAILY #30 cap.er.24h 05/15/19 [Rx] Atorvastatin [Lipitor] 40 mg PO HS #30 tablet 05/16/19 [Rx] Potassium Chloride 10 meq PO BIDWM #60 tab.er.prt 05/16/19 [Rx] Tramadol HCl [Ultram] 50 mg PO QID PRN 7 Days #28 tab 05/16/19 [Rx] Allergies/Adverse Reactions: Allergy/AdvReac Type Severity Reaction Status Date / Time Cefadroxil [From Duricef] Allergy Rash Verified 04/24/19 17:24 sulfamethoxazole Allergy Rash Verified 04/24/19 17:24 [From Bactrim] trimethoprim [From Bactrim] Allergy Rash Verified 04/24/19 17:24 Date of admission: 05/05/19 18:01 Primary care physician: Parker Romero MD Consults: 05/05/19 18:43 Consult to Occupational Therapy [CONS] Routine Comment: eval Reason for Consult: eval and tx Does patient have active BEDREST order?: No Is patient medically & hemodynamically stable?: Yes Consult to Physical Therapy [CONS] Routine Comment: eval Reason for Consult: eval and tx Does patient have active BEDREST order?: No Is patient medically & hemodynamically stable?: Yes Consult to Recreational Therapy [CONS] Routine Comment: Consult to Sec Reporting Consultant [CONS] Routine Reason for SW Consult: d/c planning 05/05/19 20:53 Consult to Nutrition [CONS] Routine Comment: Consulting Provider: NUTRITION Reason for Dietary Consult: Other 05/06/19 10:29 Consult to Wound Care [CONS] Routine Reason for Consult: Evaluate left lower extremity skin ulcer Call Completed: No Discharging clinician: Parker Romero Anticipated date of discharge: 05/16/19 - Constitutional Vitals: Temp Pulse Resp BP Pulse Ox 98.1 F 75 18 116/65 92 05/15/19 18:19 05/15/19 18:19 05/15/19 18:19 05/15/19 18:19 05/15/19 18:19 General appearance: Present: A&O X 3, no acute distress, answers questions appropriately - Respiratory Respiratory exam: Present: CTAB - Cardiovascular Cardiovascular exam: Present: RRR, +S1, +S2, systolic murmur (2/6 systolic murmur) - GI/Abdominal GI/Abdominal exam: Present: soft. Absent: tenderness - Extremities Exam Additional comments: Right lower extremity appears normal. No skin breakdown. No edema. Left lower extremity is in an Unna wrap without signs of drainage. Her toes are warm and dry. - Skin Additional comments: Her intertriginous candidiasis under her large pannus is markedly improved. Still extensive and also radiates onto the left buttock. Still gets improved compared to with nystatin. The decubitus ulcer on the right buttock is gone from deep stage II with sharp edges did not very superficial without drainage and healing well. Still covered with Allevyn - Patient Status Disposition: Home, Self-Care Condition: Fair Functional capacity at discharge: uses cane/walker Overall status at discharge: patient is not back to baseline - Discharge Instructions Follow Up With: Parker Romero MD [Primary Care Provider] - (Since Dr. Romero has seen her during her swing bed stay, she will not need to follow-up in the office immediately. Arrangements will be made at a later date.) - Diet and Activity Activity: as per physical therapy, increase activity as tolerated Diet: advance to your usual diet
[2019-05-16 05:27] LABS: Basophils % 0.9 %; Hematocrit 30.8 % (35.3-44.9); Hemoglobin 9.8 g/dL (11.5-15.4); Immature Granulocytes % 0.3 % (0-4); Lymphocytes % 28.1 %; Mean Corpuscular HGB Conc 31.8 g/dL (31.6-35.5); Mean Corpuscular Hemoglobin 27.9 pg (28.0-33.3); Mean Corpuscular Volume 87.7 fL (83.0-100.0); Mean Platelet Volume 8.8 fL (9.4-12.4); Monocytes # 0.4 K/mcL (0.0-1.3); Monocytes % 12.9 %; Platelet Count 197 K/mcL (140-400); Red Blood Count 3.51 M/mcL (3.82-4.97); Red Cell Distribution Width 14.9 % (11.5-14.5); Segmented Neutrophils % 57.8 %; White Blood Count 3.4 K/mcL (4.3-11.1)
[2019-05-16 05:41] LABS: BUN/Creatinine Ratio 12 (6-26); Blood Urea Nitrogen 13 mg/dL (8-23); Calcium 8.3 mg/dL (8.6-10.3); Carbon Dioxide 26 mEq/L (23-29); Chloride 108 mEq/L (98-107); Glucose 100 mg/dL (70-105); Osmolality,Calculated 292 (280-300); Sodium 141 mEq/L (136-145); eGFR For African Americans > 60 (> 60); eGFR For Non-African Americans 50 (> 60)
[2019-05-16 07:17] VITALS: BP 115/64
[2019-05-16] MEDS: levoFLOXacin 750 MG TABLET PO SCH (08:27)
[2019-05-16] MEDS: Aspirin Enteric Coated 81 MG Tablet PO SCH (08:27)
[2019-05-16] MEDS: Apixaban 5 MG TABLET PO SCH (08:27)
[2019-05-16] MEDS: Diltiazem CD (24hr) 180 MG CAPSULE PO SCH (08:27)
[2019-05-16] MEDS: traMADol 50 MG TABLET PO PRN ×2 (08:28→14:59)
[2019-05-16] MEDS: Clotrimazole 1% CRM 15 GM TUBE TP SCH (08:28)
[2019-05-16 08:45] LABS: % Iron Saturation 15 % (15-50); Iron 44 mcg/dL (50-170); Transferrin 208 mg/dL (203-362)
== END 2019-05-16 15:11 | disposition home or self-care (01) | DRG 592 ==
LOC: INPGRE 05-05 18:01
PROVIDERS: ADMIT Family Medicine; ATTEND Family Medicine

== ENCOUNTER 2019-05-18 11:36 | Observation (INO) ==
[2019-05-18] MEDS ORDERED: 0.9 % Sodium Chloride 1,000 ML IVC ONE (11:58)
--- NOTE | 2019-05-18 12:14 | Emergency Department Note ---
Disposition Clinical Impression: Weakness generalized, Hypokalemia Disposition: Admitted As Inpatient Condition: Fair Referrals: Parker Romero MD [Primary Care Provider] - Time of Disposition: 15:06 Weakness HPI - General Stated complaint: Unable To Walk Time Seen by Provider: 05/18/19 11:41 Source: patient, EMS Mode of arrival: ambulatory Limitations: no limitations Nursing Notes Reviewed: Yes Vital Signs Reviewed: Yes - History of Present Illness HPI Narrative: was discharged from a swing bed here Sunday after rehab. says was able to walk into the house and went to the bathroom but almost fell coming out of the bathroom but caught her. helped her to a chair and that is where she has been since Sunday evening. says legs to weak to hold her up, and arms too weak for her to pull up. no focal weakness, no fall, no fever. she has a venous ulcer on left lower leg that was seen in the wound clinic Sunday and was wrapped in an Unna Boot. no numbness in legs except left leg in the area of the bandage. no urinary symptoms. Dr. Romero had noted on his H&P that she had had some pre-existing weakness and gait difficulty in the hospital. she had a PE and atrial fib but she denies SOB or chest pain now. Pt Subjective Complaint: generalized weakness/fatigue, difficulty ambulating Duration: constant Location: generalized Pain Scale: 0 Improves with: none Worsens with: none Associated symptoms: Reports: denies other symptoms - Related Data Home Medications Medication Instructions Recorded Confirmed Aspirin Enteric Coated [Aspirin EC] 81 mg PO DAILY 04/24/19 05/18/19 Previous Rx's Medication Instructions Recorded Amoxicillin/Clavulanate [Augmentin] 875 mg PO BIDWM 7 Days #14 tablet 05/05/19 Levofloxacin [Levaquin] 750 mg PO DAILY 7 Days #7 tablet 05/05/19 Apixaban [Eliquis] 5 mg PO BID #60 tablet 05/15/19 Clotrimazole 1% CRM [Lotrimin 1%] 1 appl TP BID #90 tube 05/15/19 Diltiazem CD (24hr) [Cardizem CD] 180 mg PO DAILY #30 cap.er.24h 05/15/19 Atorvastatin [Lipitor] 40 mg PO HS #30 tablet 05/16/19 Potassium Chloride 10 meq PO BIDWM #60 tab.er.prt 05/16/19 Tramadol HCl [Ultram] 50 mg PO QID PRN 7 Days #28 tab 05/16/19 Allergies Allergy/AdvReac Type Severity Reaction Status Date / Time Cefadroxil [From Duricef] Allergy Rash Verified 04/24/19 17:24 sulfamethoxazole Allergy Rash Verified 04/24/19 17:24 [From Bactrim] trimethoprim [From Bactrim] Allergy Rash Verified 04/24/19 17:24 Constitutional: Reports: weakness. Denies: fever, chills Eyes: Denies: eye pain, eye discharge ENT ED: Denies: ear pain, throat pain Cardiovascular: Denies: chest pain, palpitations, dyspnea on exertion Respiratory: Denies: cough, dyspnea Gastrointestinal: Denies: abdominal pain, nausea, vomiting Genitourinary: Denies: urgency, dysuria, frequency Musculoskeletal: Reports: back pain. Denies: neck pain Integumentary: Denies: rash, abrasion Neurological: Reports: weakness. Denies: headache, numbness Psychiatric: Reports: anxiety. Denies: depression Endocrine: Denies: fatigue, heat or cold intolerance Hematological/Lymphatic: Reports: easy bleeding. Denies: easy bruising Allergic/Immunologic: Denies: facial swelling, urticaria Past Medical History - Past Medical History Medical history: Reports: arthritis, atrial fibrillation, CHF, coronary artery disease, GERD, hyperlipidemia, hypertension, pulmonary embolus, renal disease, other Psychiatric history: Reports: no psych history [employer] history: Reports: dysfunctional uterine bleed, bilateral tubal ligation - Social History Smoking Status: Former smoker Smokeless Tobacco Status: No Alcohol use: Reports: none Drug use: Reports: none Physical Exam - General Limitations: no limitations General appearance: alert, in no apparent distress, obese - Head Head exam: atraumatic, normocephalic - Eye Eye exam: Present: normal appearance, PERRL, EOMI - ENT ENT exam: normal exam, normal oropharynx, mucous membranes moist - Neck Neck exam: Present: normal inspection, full ROM - Chest Chest inspection: Present: normal inspection, symmetric chest wall rise - Respiratory Respiratory exam: Present: normal lung sounds bilaterally - Cardiovascular Cardiovascular exam: Present: regular rate, normal rhythm, normal heart sounds - Abdominal Exam Abdominal exam: Present: soft, Non-Tender, normal bowel sounds - Extremities Exam Extremities exam: Present: normal inspection, full ROM. Absent: tenderness, calf tenderness - Back Exam Back exam: Present: other (unable to sit up) - Neurological Exam Neurological exam: Present: alert, oriented X3, CN II-XII intact. Absent: motor sensory deficit - Psychiatric Psychiatric exam: Present: normal affect, normal mood - Skin Skin exam: Present: warm, dry, normal color Course - Reevaluation(s) Reevaluation #1: I think she needs further rehab and physical strengthening. I have spoken with Dr. Perea who will admit her to observation Vital Signs Temperature 98.1 F 05/18/19 11:59 Pulse Rate 93 05/18/19 11:59 Respiratory Rate 16 05/18/19 11:59 Blood Pressure 126/60 05/18/19 11:59 O2 Sat by Pulse Oximetry 100 05/18/19 11:59 Temperature 98.1 F 05/18/19 11:59 Pulse Rate 96 05/18/19 14:30 Respiratory Rate 16 05/18/19 11:59 Blood Pressure 116/66 05/18/19 14:30 O2 Sat by Pulse Oximetry 99 05/18/19 14:30 Oxygen Delivery Oxygen Delivery Room Air Weakness - Differential Diagnosis Differential Diagnosis: Likely: acute myocardial infarction, anemia, hypoglyc emia, rhabdomyolysis, sepsis/infection, dehydration, medication effect, stroke, metabolic, thyroid/endocrine disorder - Medical Records Medical records reviewed: Yes I reviewed the patient's medical records. - Lab Data Lab results reviewed: Yes I reviewed the patient's lab results. Result diagrams: 05/18/19 12:34 05/18/19 12:34 Lab Results 05/18/19 05/18/19 05/18/19 Range/Units 12:08 12:34 12:34 WBC 7.3 D (4.3-11.1) K/mcL RBC 3.40 L (3.82-4.97) M/mcL Hgb 9.7 L (11.5-15.4) g/dL Hct 29.4 L (35.3-44.9) % MCV 86.5 (83.0-100.0) fL MCH 28.5 (28.0-33.3) pg MCHC 33.0 (31.6-35.5) g/dL RDW 15.3 H (11.5-14.5) % Plt Count 203 (140-400) K/mcL MPV 9.0 L (9.4-12.4) fL Immature Gran % 0.1 (0-4) % Seg Neutrophils % 72.5 % Lymphocytes % 16.9 % Monocytes % 10.1 % Eosinophils % 0.0 % Basophils % 0.4 % Neutrophils # 5.3 (1.6-8.9) K/mcL Lymphocytes # 1.2 (0.6-4.6) K/mcL Monocytes # 0.7 (0.0-1.3) K/mcL Eosinophils # 0.0 (0.0-0.6) K/mcL Basophils # 0.0 (0.0-0.2) K/mcL PT 16.7 H (9.4-12.1) Seconds INR 1.5 Sodium (136-145) mEq/L Potassium (3.5-5.1) mEq/L Chloride (98-107) mEq/L Carbon Dioxide (23-29) mEq/L BUN (8-23) mg/dL Creatinine (0.60-1.20) mg/dL Est GFR ( Amer) (> 60) Est GFR (Non-Af Amer) (> 60) BUN/Creatinine Ratio (6-26) Glucose (70-105) mg/dL Calculated Osmolality (280-300) Lactic Acid (0.5-2.2) mmol/L Calcium (8.6-10.3) mg/dL Magnesium (1.6-2.6) mg/dL Total Bilirubin (0.3-1.0) mg/dL AST (13-39) Units/L ALT (7-52) Units/L Alkaline Phosphatase (34-104) Units/L Creatine Kinase (30-223) Units/L Troponin I (< 0.04) ng/mL B-Natriuretic Peptide (Less than 100) pg/mL Serum Total Protein (6.4-8.9) g/dL Albumin (3.5-5.7) g/dL Globulin (2.4-3.5) g/dL Albumin/Globulin Ratio (1.1-2.2) TSH (0.340-5.600) mcIU/mL Urine Color Yellow (Yellow) Urine Clarity Clear (Clear) Urine pH 6.5 (5.0-8.0) pH Units Ur Specific [place]burn 1.025 (1.010-1.025) Urine Protein 100 H (Neg-Trace) mg/dL Urine Glucose (UA) Normal (Normal) mg/dL Urine Ketones Negative (Negative) mg/dL Urine Blood Large H (Negative) Urine Nitrite Negative (Negative) Urine Bilirubin Negative (Negative) Urine Urobilinogen Normal (Normal) mg/dL Ur Leukocyte Esterase Trace H (Negative) Urine Microscopic RBC TNTC H (0-3) per hpf Urine Microscopic WBC 0-3 (0-3) per hpf Ur Squamous Epith Cells Many H (None-Few) per lpf Ur Culture Indicated? YES A (NO) 05/18/19 05/18/19 05/18/19 Range/Units 12:34 12:34 12:34 WBC (4.3-11.1) K/mcL RBC (3.82-4.97) M/mcL Hgb (11.5-15.4) g/dL Hct (35.3-44.9) % MCV (83.0-100.0) fL MCH (28.0-33.3) pg MCHC (31.6-35.5) g/dL RDW (11.5-14.5) % Plt Count (140-400) K/mcL MPV (9.4-12.4) fL Immature Gran % (0-4) % Seg Neutrophils % % Lymphocytes % % Monocytes % % Eosinophils % % Basophils % % Neutrophils # (1.6-8.9) K/mcL Lymphocytes # (0.6-4.6) K/mcL Monocytes # (0.0-1.3) K/mcL Eosinophils # (0.0-0.6) K/mcL Basophils # (0.0-0.2) K/mcL PT (9.4-12.1) Seconds INR Sodium 137 (136-145) mEq/L Potassium 3.3 L (3.5-5.1) mEq/L Chloride 104 (98-107) mEq/L Carbon Dioxide 22 L (23-29) mEq/L BUN 18 (8-23) mg/dL Creatinine 1.43 H (0.60-1.20) mg/dL Est GFR ( Amer) 44 L (> 60) Est GFR (Non-Af Amer) 36 L (> 60) BUN/Creatinine Ratio 13 (6-26) Glucose 96 (70-105) mg/dL Calculated Osmolality 286 (280-300) Lactic Acid 1.2 (0.5-2.2) mmol/L Calcium 8.5 L (8.6-10.3) mg/dL Magnesium 1.8 (1.6-2.6) mg/dL Total Bilirubin 0.7 (0.3-1.0) mg/dL AST 35 (13-39) Units/L ALT 23 (7-52) Units/L Alkaline Phosphatase 52 (34-104) Units/L Creatine Kinase 618 H (30-223) Units/L Troponin I 0.03 (< 0.04) ng/mL B-Natriuretic Peptide 53 (Less than 100) pg/mL Serum Total Protein 5.5 L (6.4-8.9) g/dL Albumin 3.4 L (3.5-5.7) g/dL Globulin 2.1 L (2.4-3.5) g/dL Albumin/Globulin Ratio 1.6 (1.1-2.2) TSH 1.056 (0.340-5.600) mcIU/mL Urine Color (Yellow) Urine Clarity (Clear) Urine pH (5.0-8.0) pH Units Ur Specific Sherburn (1.010-1.025) Urine Protein (Neg-Trace) mg/dL Urine Glucose (UA) (Normal) mg/dL Urine Ketones (Negative) mg/dL Urine Blood (Negative) Urine Nitrite (Negative) Urine Bilirubin (Negative) Urine Urobilinogen (Normal) mg/dL Ur Leukocyte Esterase (Negative) Urine Microscopic RBC (0-3) per hpf Urine Microscopic WBC (0-3) per hpf Ur Squamous Epith Cells (None-Few) per lpf Ur Culture Indicated? (NO) - Radiology Data Radiology results reviewed: Yes I reviewed the patient's radiology results. - EKG Data EKG attestation: Yes I reviewed and interpreted this EKG. EKG results narrative: NSR 89/min, LaD, LaFB, baseline artifact, no change from prior 04/24/19
[2019-05-18 12:44] LABS: Basophils % 0.4 %; Hematocrit 29.4 % (35.3-44.9); Hemoglobin 9.7 g/dL (11.5-15.4); Immature Granulocytes % 0.1 % (0-4); Lymphocytes # 1.2 K/mcL (0.6-4.6); Lymphocytes % 16.9 %; Mean Corpuscular Hemoglobin 28.5 pg (28.0-33.3); Mean Corpuscular Volume 86.5 fL (83.0-100.0); Monocytes # 0.7 K/mcL (0.0-1.3); Monocytes % 10.1 %; Neutrophils # 5.3 K/mcL (1.6-8.9); Platelet Count 203 K/mcL (140-400); Red Cell Distribution Width 15.3 % (11.5-14.5); Segmented Neutrophils % 72.5 %; White Blood Count 7.3 K/mcL (4.3-11.1)
[2019-05-18 12:47] LABS: INR 1.5; Prothrombin Time 16.7 Seconds (9.4-12.1)
[2019-05-18 12:51] LABS: Bilirubin,Urine Negative (Negative); Blood,Urine Large (Negative); Clarity,Urine Clear (Clear); Color,Urine Yellow (Yellow); Glucose,Urine (UA) Normal (Normal); Ketones,Urine Negative (Negative); Leukocyte Esterase,Urine Trace (Negative); Nitrite,Urine Negative (Negative); PH,Urine 6.5 pH Units (5.0-8.0); Protein,Urine 100 mg/dL (Neg-Trace); Specific Gravity,Urine 1.025 (1.010-1.025); Urobilinogen,Urine Normal (Normal)
[2019-05-18 12:57] LABS: RBC,Urine TNTC per hpf (0-3); Squamous Epithelial Cell,Urine Many per lpf (None-Few); WBC,Urine 0-3 per hpf (0-3)
[2019-05-18 13:06] LABS: Albumin 3.4 g/dL (3.5-5.7); Albumin/Globulin Ratio 1.6 (1.1-2.2); Bilirubin,Total 0.7 mg/dL (0.3-1.0); Calcium 8.5 mg/dL (8.6-10.3); Globulin 2.1 g/dL (2.4-3.5); Magnesium 1.8 mg/dL (1.6-2.6); Potassium 3.3 mEq/L (3.5-5.1); Total Protein 5.5 g/dL (6.4-8.9)
[2019-05-18 13:08] LABS: Troponin I 0.03 ng/mL (< 0.04)
[2019-05-18 13:23] LABS: Thyroid Stimulating Hormone 1.056 mcIU/mL (0.340-5.600)
[2019-05-18] MEDS ORDERED: Potassium Citrate 10 MEQ TABLET.ER PO SCH (15:00)
[2019-05-18] MEDS ORDERED: Naloxone 0.4 MG/ML INJ IVP PRN (15:33)
[2019-05-18] MEDS ORDERED: Potassium Citrate 10 MEQ TABLET.ER PO ONE (16:12)
[2019-05-18] MEDS: Clotrimazole 1% CRM 15 GM TUBE TP SCH (19:21)
[2019-05-18] MEDS: Apixaban 5 MG TABLET PO SCH (20:00)
[2019-05-18] MEDS: Potassium Citrate 10 MEQ TABLET.ER PO SCH (20:00)
[2019-05-18] MEDS: traMADol 50 MG TABLET PO PRN (22:40)
[2019-05-19 05:57] LABS: Hematocrit 26.3 % (35.3-44.9); Hemoglobin 8.5 g/dL (11.5-15.4); Mean Corpuscular HGB Conc 32.3 g/dL (31.6-35.5); Mean Corpuscular Hemoglobin 28.4 pg (28.0-33.3); Mean Platelet Volume 9.2 fL (9.4-12.4); Platelet Count 179 K/mcL (140-400); Red Blood Count 2.99 M/mcL (3.82-4.97); Red Cell Distribution Width 15.2 % (11.5-14.5); White Blood Count 5.4 K/mcL (4.3-11.1)
[2019-05-19] MEDS ORDERED: Potassium Citrate 10 MEQ TABLET.ER PO SCH ×2 (06:00)
[2019-05-19] MEDS: traMADol 50 MG TABLET PO PRN ×3 (06:01→21:41)
[2019-05-19 06:13] LABS: Albumin/Globulin Ratio 1.8 (1.1-2.2); Bilirubin,Total 0.7 mg/dL (0.3-1.0); Calcium 8.4 mg/dL (8.6-10.3); Globulin 1.7 g/dL (2.4-3.5); Potassium 3.1 mEq/L (3.5-5.1); Total Protein 4.7 g/dL (6.4-8.9)
[2019-05-19] MEDS: Clotrimazole 1% CRM 15 GM TUBE TP SCH ×3 (08:42→21:42)
--- NOTE | 2019-05-19 08:52 | Internal Med History&Physical ---
Date of Encounter: 05/20/19 Time of Encounter: 08:52 Assessment and Plan (1) Weakness generalized Current visit: Yes Status: Acute Patient readmitted to [facility] with generalized weakness, falling episode at home that occurred within an hour or 2 of leaving our facility. Prior to going home she was ambulatory, self toileting, and finished a course of PT and OT. At home she felt like "everything got weak" and she fell in the bathroom. She was not able to regain her ADLs at that point, basically sat in a chair for a couple of days before coming to the emergency room. She has generalized weakness, inability to maintain safe ambulation or even sit up at the edge of the bed by herself. I really do not know the etiology for this. We will get a CT of the head. I do not see any lateralizing signs. I do not think this is anxiety or psychogenic. She has mild hypokalemia but I do not think enough to cause her current symptoms and signs. She will likely need to be admitted in swing bed or ECF for longer period of time before returning to home. She will be evaluated by PT and OT today. (2) Physical deconditioning Current visit: Yes Status: Acute As discussed above. When she left she was independent with her walker, self toileting, maintaining ADLs well enough to go home. She is now back having fallen at home and 2 week to be safely sent back to home. We will discuss with social media project manager regarding swing bed days. (3) Hypokalemia Current visit: Yes Status: Acute Continued hypokalemia without obvious etiology. She was seen by nephrology previously. I assume she was taking her potassium at home. I will need to increase her potassium supplement. (4) Acute kidney injury superimposed on CKD Current visit: Yes Status: Resolved Acute kidney injury with creatinine 1.43. I suspect this is related to her decreased ADLs and decreased oral intake at home. The creatinine is now back to normal. We will continue to monitor. She does have continued microscopic hematuria and proteinuria. She was seen by nephrology previously. Culture has been sent but only 0-3 white blood cells per high-powered field and no urinary tract symptoms. (5) PAD (peripheral artery disease) Current visit: Yes Status: Chronic Known peripheral artery disease with abnormal ABIs, surprisingly the right is worse than the left. No claudication per se. She does have the stasis ulcer on the left lower extremity which is rather extensive. She was seen by vascular specialist and no other intervention for now. (6) Pulmonary embolism Current visit: Yes Status: Acute Known history of pulmonary embolism in the right lower lung as diagnosed at [place]. She is anticoagulated with Eliquis and no significant new pulmonary symptoms. She does become dyspneic easily with exertion, but better than she was over the past week or two. No hemoptysis. No new pulmonary symptoms. Qualifiers: Pulmonary embolism type: other Chronicity: acute Acute cor pulmonale presence: without acute cor pulmonale Qualified Code(s): I26.99 - Other pulmonary embolism without acute cor pulmonale (7) Skin ulcer of left lower leg Current visit: Yes Status: Chronic Continue skin ulcer of the left lower extremity, likely from chronic venous stasis but has progressed over the past 2 years. Followed by wound clinic. I did not evaluate today. She has finished a course of two antibiotics. Qualifiers: Non-pressure ulcer stage: with necrosis of muscle Qualified Code(s): L97.923 - Non-pressure chronic ulcer of unspecified part of left lower leg with necrosis of muscle (8) History of atrial fibrillation Current visit: Yes Status: Chronic She has a history of having had atrial fibrillation when she had a pulmonary and was. Since that time, and during the entire time she was at [facility] previously, she has been in sinus rhythm. No angina or CHF findings. She is anticoagulated with Eliquis (9) Intertriginous candidiasis Current visit: Yes Status: Acute Continued intertriginous candidiasis. She has been using clotrimazole cream which has been helpful. I did not reevaluate today. (10) Anemia Current visit: Yes Status: Acute She has had mild anemia since her hospital stay at [place] with pulmonary embolism and atrial fibrillation and wound issues. Her count has been stable. No melena or hematochezia. She said she was scoped well at [place] in no obvious source of bleeding found. No melena or hematochezia. Qualifiers: Anemia type: unspecified type Qualified Code(s): D64.9 - Anemia, unspecified (11) DVT prophylaxis Current visit: Yes Status: Chronic She is taking L Sajan because of her history of pulmonary embolism and previous atrial fibrillation fibrillation. Therefore she does not need further DVT prophylaxis. Internal Medicine - H&P: HPI Chief complaint: When I went home I got so weak that I fell down Admitted From: Emergency Dept Plans for Post Hospital Care: Home History of present illness: Ms. Michel is a 73 year old female known history of a chronic ulceration in the left lower leg followed by wound clinic, history of recent pulmonary embolism in the right lower lung, recent paroxysmal atrial fibrillation and anticoagulated with Eliquis, peripheral artery disease, anemia and hypokalemia was just disc harged from [facility] swing bed on 05/16/19 after finishing a course of physical and occupational therapy are deconditioning following the extended hospital stay at [place]. When she left the hospital she was ambulatory with her walker, able to maintain her ADLs, do toileting etc. She stated within an hour or 2 of going home she had to go to the toilet and while there she became very weak "everything became numb and I fell" sustaining abrasions and bruises. She states that since that time she has been unable to ambulate on her own, unable to the toilet, feels that her legs feel like rubber especially the left side, and she basically sat in a chair for 2 days before coming back to the emergency room and was readmitted yesterday due to weakness. In the ER there was no focal findings on x-rays or lab work other than continued hypokalemia, stable anemia and red blood cells in her urine. She denies any chest pain, palpitations, lightheadedness, new dyspnea, hemoptysis, abdominal pain, UTI symptoms, change in bowel habits, or unilateral focal deficit that is new. She states that she does not eat well but was able to do so at home. She has no explanation as to why she "became so weak" within an hour or 2 of being home. She has not had a recent CT of the head. He was taking her medications appropriately. She did not take any tramadol since before her wound clinic visit on Sunday afternoon. Past Med Surg Social Fam HX - Past Medical History Medical history: arthritis, atrial fibrillation (Paroxysmal atrial fibrillation when had pulmonary embolism at [place] in the past 2 weeks/resolved), CHF, coronary artery disease (Mild coronary artery disease not needing intervention other than medical treatment), GERD, hyperlipidemia, hypertension, pulmonary embolus, renal disease, other (Chronic ulceration of skin of left lower extremity tended by wound clinic) Additional medical history: Toni was cardioverted in 2010. Gland in neck was cancerous in 2010. Psychiatric history: no psych history - Past Surgical History Additional surgical history: D&C, Cancerous neck gland removed, tubal ligation, tonsillectomy - Social History Smoking Status: Former smoker Smokeless Tobacco Status: No Alcohol use: none Drug use: none Occupational status: retired Activity Level: Uses cane/walker (She has a few steps into her home, otherwise all facilities on one floor. Her is there to assist her.) Recent Out of Country Travel Within the Last 8 Weeks: No Exposure or Possible Exposure to Illness During Travel: No - Family History Mother History Unknown: Yes Living Status: Hx Family Cancer: Yes (pancreatic) Father History Unknown: Yes Living Status: Hx Family Cardiac Disorders: Yes Hx Family Cancer: Yes (lung) Internal Medicine - H&P: Meds Aspirin Enteric Coated [Aspirin EC] 81 mg PO DAILY 04/24/19 [History] Apixaban [Eliquis] 5 mg PO BID #60 tablet 05/15/19 [Rx] Clotrimazole 1% CRM [Lotrimin 1%] 1 appl TP BID #90 tube 05/15/19 [Rx] Diltiazem CD (24hr) [Cardizem CD] 180 mg PO DAILY #30 cap.er.24h 05/15/19 [Rx] Atorvastatin [Lipitor] 40 mg PO HS #30 tablet 05/16/19 [Rx] Potassium Chloride 10 meq PO BIDWM #60 tab.er.prt 05/16/19 [Rx] Tramadol HCl [Ultram] 50 mg PO QID PRN 7 Days #28 tab 05/16/19 [Rx] Allergy/AdvReac Type Severity Reaction Status Date / Time Cefadroxil [From Duricef] Allergy Rash Verified 04/24/19 17:24 sulfamethoxazole Allergy Rash Verified 04/24/19 17:24 [From Bactrim] trimethoprim [From Bactrim] Allergy Rash Verified 04/24/19 17:24 - Constitutional Constitutional: falls (She fell in the bathroom at home sustaining abrasions on her arms and legs and a bruise on her forehead), weakness (Complains of generalized weakness and "numbness" in her arms and legs), no anorexia, no chills, no fever(s) - EENT Eyes: loss of vision, no diplopia, no loss of peripheral vision Ears: no ear discharge, no ear pain Nose, mouth and throat: no dry mouth, no sinus pressure, no sore throat - Cardiovascular Cardiovascular ROS IM: dyspnea (She remains mildly dyspneic with exertion, it has improved dramatically since she was at [place]. No sudden change now.), dyspnea on exertion, no chest pain, no claudication, no diaphoresis, no irregular heart rhythm, no lightheadedness, no palpitations, no syncope - Respiratory Respiratory: dyspnea (Chronically she is easily dyspneic, but overall improved since she left the [place]. No sudden change in this.), dyspnea on exertion (As above.), no cough, no chest congestion, no change in phlegm color, no pain with cough - Gastrointestinal Gastrointestinal: nausea (Patient states she has had nausea and she vomited once at home), vomiting (She vomited once at home.), no abdominal pain, no change in stool character, no constipation, no cramping, no diarrhea, no dysphagia, no hematemesis, no melena - Genitourinary Genitourinary: no difficulty urinating, no dysuria, no flank pain, no hematuria - Musculoskeletal Musculoskeletal ROS IM: muscle weakness (She feels weak in all 4 extremities. She thinks his left is worse than the right.), no back pain, no joint swelling, no neck pain - Integumentary Integumentary IM: new lesions (She has sustained some abrasions on her extremities including right elbow, right knee and a bruise on her forehead), no jaundice - Neurological Neurological ROS: abnormal gait (She states she cannot walk and feels very wobbly. (The nurse was able to help ambulate her to the toilet)), numbness (She feels like all 4 extremities "feel numb" but no localizing weakness.), paresthesias (She states that her arms and legs "feel numb" but no localizing weakness), no dizziness, no focal weakness, no loss of vision, no memory loss, no radicular pain, no tremor(s), no other visual disturbances - Psychiatric Psychiatric: no auditory hallucinations, no confusion, no depression, no difficulty concentrating, no hallucinations, no memory loss - Allergic/Immunologic Allergic/Immunologic: no wheezing - Constitutional Vitals: Temp Pulse Resp BP Pulse Ox 97.6 F 78 18 108/60 95 05/19/19 07:13 05/19/19 07:13 05/19/19 07:13 05/19/19 07:13 05/19/19 07:13 General appearance: Present: cooperative, A&O X 3, no acute distress (In no distress while resting and eating. However I was barely able to get her into standing position with much shortness of breath and weakness and instability. She could not take a step though.), answers questions appropriately - Head Additional comments: A bruise is noted on her forehead measuring about 3 cm in diameter - Eye Eye exam: Present: PERRL. 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 - Respiratory Respiratory exam: Present: CTAB. Absent: rales, respiratory distress, rhonchi, wheezes, tachypnea - Cardiovascular Cardiovascular exam: Present: RRR, +S1, +S2, systolic murmur (1 to 2/6 systolic murmur) - GI/Abdominal GI/Abdominal exam: Present: soft, no peritoneal signs. Absent: hepatomegaly, mass, tenderness Additional comments: Examination somewhat limited because she is quite obese. - Extremities Exam Extremities exam: Absent: calf tenderness, joint swelling, tenderness Additional comments: Left lower extremity is wrapped in an Unna boot. Toes are warm and dry. Good color. Right lower extremity shows mild superficial abrasions at the knee. Foot and ankle show no edema, good range of motion, no tenderness and no skin breakdown. - Neurological Exam Neurological exam: Present: CN II-XII intact (Except for mild palsy on the right face including forehead eyelids and right cheek from previous Blanton's palsy), facial droop (Mild right-sided facial droop from Blanton's palsy.). Absent: speech deficit Additional comments: She is able to move all extremities. However she appears to be weaker in lower extremities that she was previously. She can lift her legs off the bed about 8- 10 inches bilaterally, but less so than she was able to last visit. With assistance she was able to get the sitting position. It took much assistance to get her into standing position. She was wobbly, she did not feel like she could take one step. I did not try to ambulate her because of generalized weakness. She is able to raise her arms over her head. Her hand grasp is 4 out of 5 bilaterally. Her quads and hamstrings and lower extremities are 4 out of 5 bilaterally. Mentation appears to be intact. Cutaneous sensation on light touch appears to be equal bilaterally. - Psychiatric Psychiatric exam: Present: normal affect, normal mood. Absent: anxious, suicidal ideation - Skin Additional comments: Left lower extremity is in an Unna wrap and I did not evaluate today. She has superficial abrasion at the right knee and right elbow. She has a bruise on her forehead measuring 3-4 cm in diameter. I did not recheck the decubitus ulcer on her right buttock that I saw on Sunday. I did not recheck the intertriginous candidiasis since Sunday. Internal Med - H&P Results - Labs CBC & Chem 7: 05/20/19 06:20 05/20/19 06:20 Labs: Short CBC 05/18/19 05/19/19 Range/Units 12:34 05:40 WBC 7.3 D 5.4 (4.3-11.1) K/mcL Hgb 9.7 L 8.5 L (11.5-15.4) g/dL Hct 29.4 L 26.3 L (35.3-44.9) % Plt Count 203 179 (140-400) K/mcL Neutrophils # 5.3 (1.6-8.9) K/mcL BMP 05/18/19 05/19/19 12:34 05:40 Sodium 137 138 Potassium 3.3 L 3.1 L Chloride 104 107 Carbon Dioxide 22 L 26 BUN 18 14 Creatinine 1.43 H 1.16 Glucose 96 88 Calcium 8.5 L 8.4 L Cardiac Enzymes 05/18/19 Range/Units 12:34 Troponin I 0.03 (< 0.04) ng/mL Liver Function 05/18/19 05/19/19 Range/Units 12:34 05:40 Total Bilirubin 0.7 0.7 (0.3-1.0) mg/dL AST 35 26 (13-39) Units/L ALT 23 19 (7-52) Units/L Alkaline Phosphatase 52 43 (34-104) Units/L Albumin 3.4 L 3.0 L (3.5-5.7) g/dL Urine 05/18/19 Range/Units 12:08 Urine Color Yellow (Yellow) Urine Clarity Clear (Clear) Urine pH 6.5 (5.0-8.0) pH Units Ur Specific [place] 1.025 (1.010-1.025) Urine Protein 100 H (Neg-Trace) mg/dL Urine Glucose (UA) Normal (Normal) mg/dL labs have been reviewed. Hemoglobin is stable. Creatinine abnormal but stable. Potassium still low at 3.3 on admission and 3.1 today. Urinalysis shows proteinuria and red blood cells, 0-3 white blood cells and culture has been set up. - Impressions ITS Impressions Chest X-Ray 05/18/19 11:58 IMPRESSION: No acute cardiopulmonary disease. D/ / Michael Hart MD / Michael Hart MD Interpreting Provider: Michael Hart MD - VTE Reasons for not Prescribing Prophylaxis: Not indicated-Anticoagulated or INR therapeutic
[2019-05-19] MEDS: levoFLOXacin 750 MG TABLET PO SCH (08:58)
[2019-05-19] MEDS: Apixaban 5 MG TABLET PO SCH ×2 (08:58→21:41)
[2019-05-19] MEDS: Potassium Citrate 10 MEQ TABLET.ER PO SCH ×3 (08:58→21:41)
[2019-05-19] MEDS: Diltiazem CD (24hr) 180 MG CAPSULE PO SCH (08:58)
[2019-05-19] MEDS: Aspirin Enteric Coated 81 MG Tablet PO SCH (08:58)
--- NOTE | 2019-05-19 15:55 | Electrocardiograph Report ---
[address] [address] Test Date: 2019-05-18 Pat Name: Irene Michel Department: EDG1 Room: 116 Gender: F Metal Baler: : 1945 Requested By: Jhon Woodall Order Number: [id number] Reading MD: Kye Abel Measurements Intervals [place] Rate: 89 P: 80 ND: 160 QRS: 246 QRSD: 95 T: 41 QT: 374 QTc: 456 Interpretive Statements Sinus rhythm Possible RV conduction delay Possible left anterior fascicular block Baseline artifact Electronically Signed On 05-19-2019 15:53:54 EDT by Kye Abel
[2019-05-20] MEDS: traMADol 50 MG TABLET PO PRN ×2 (02:53→09:50)
[2019-05-20 07:01] LABS: Basophils % 0.5 %; Eosinophils % 0.3 %; Hematocrit 26.6 % (35.3-44.9); Hemoglobin 8.5 g/dL (11.5-15.4); Immature Granulocytes % 0.3 % (0-4); Lymphocytes % 22.4 %; Mean Corpuscular Hemoglobin 28.2 pg (28.0-33.3); Mean Corpuscular Volume 88.4 fL (83.0-100.0); Mean Platelet Volume 9.3 fL (9.4-12.4); Monocytes # 0.4 K/mcL (0.0-1.3); Monocytes % 11.7 %; Platelet Count 167 K/mcL (140-400); Red Blood Count 3.01 M/mcL (3.82-4.97); Red Cell Distribution Width 14.8 % (11.5-14.5); Segmented Neutrophils % 64.8 %; White Blood Count 3.8 K/mcL (4.3-11.1)
[2019-05-20 07:10] LABS: Lymphocytes # 0.9 K/mcL (0.6-4.6); Neutrophils # 2.5 K/mcL (1.6-8.9)
[2019-05-20 07:11] VITALS: BP 114/72
[2019-05-20 07:16] LABS: Calcium 8.2 mg/dL (8.6-10.3); Potassium 3.4 mEq/L (3.5-5.1)
[2019-05-20] MEDS: levoFLOXacin 750 MG TABLET PO SCH (09:50)
[2019-05-20] MEDS: Aspirin Enteric Coated 81 MG Tablet PO SCH (09:50)
[2019-05-20] MEDS: Potassium Citrate 10 MEQ TABLET.ER PO SCH (09:50)
[2019-05-20] MEDS: Diltiazem CD (24hr) 180 MG CAPSULE PO SCH (09:50)
[2019-05-20] MEDS: Apixaban 5 MG TABLET PO SCH (09:50)
[2019-05-20] MEDS: Clotrimazole 1% CRM 15 GM TUBE TP SCH (09:53)
--- NOTE | 2019-05-20 10:29 | Discharge Summary ---
- NOTES TO OUTPATIENT PROVIDER Notes to Outpatient Provider: #1. Will follow up as outpatient to the wound clinic for dressing changes. #2. Will follow up with outpatient physical therapy. #3. Final urine culture is pending. Preliminary shows 50 K to 100 K gram-negative rods. Date of Encounter: 05/20/19 Time of Encounter: 13:25 - Discharge Diagnosis (1) Weakness generalized Priority: Primary Status: Acute Comments: She was admitted from the ER having sat in a chair for 2 days at home after having a falling episode. That all occurred within hours of leaving the [facility] bed following PT and OT. She was evaluated by PT and OT on the following day and she is now ambulatory and maintaining ADLs at the level she had at her last discharge. CT scan of the head failed to show any acute changes. 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 She is to have outpatient PT as well (2) Physical deconditioning Priority: Secondary Status: Acute Comments: Discussed as above. Was evaluated by PT and OT and felt that she is now resumed sufficient ADLs for discharge to home. (3) Hypokalemia Priority: Secondary Status: Acute Comments: Patient continues to have hypokalemia despite saying that she had had been taking her medicine at home. She had increased dose of 20 mEq 3 times a day in the hospital, at home she is currently taking 10 mEq twice a day and we will follow at home. She does not take a diuretic. (4) Acute kidney injury superimposed on CKD Priority: Secondary Status: Resolved Comments: On admission her creatinine was up to 1.43, normalized after IV fluids in the ER. Likely this is from prerenal decreased oral intake etiology (5) PAD (peripheral artery disease) Priority: Secondary Status: Chronic Comments: Known peripheral artery disease, on ABIs the right is worse than the left. The stasis ulcers on the left lower extremity. She has been seen by Dr. Smallwood of vascular specialty in no urgent intervention needed currently. No claudication noted. (6) Pulmonary embolism Priority: Secondary Status: Acute Comments: Known pulmonary embolism that occurred during her hospitalization at [place]. She is on Eliquis for anticoagulation. She is having no new pulmonary symptoms. No complications from her anticoagulant. Qualifiers: Pulmonary embolism type: other Chronicity: acute Acute cor pulmonale presence: without acute cor pulmonale Qualified Code(s): I26.99 - Other pulmonary embolism without acute cor pulmonale (7) Skin ulcer of left lower leg Priority: Secondary Status: Chronic Comments: Continued large ulceration the left lower extremity. This is being followed by wound clinic. Outpatient appointment made as well. Qualifiers: Non-pressure ulcer stage: with necrosis of muscle Qualified Code(s): L97.923 - Non-pressure chronic ulcer of unspecified part of left lower leg with necrosis of muscle (8) History of atrial fibrillation Priority: Secondary Status: Chronic Comments: Patient had developed atrial fibrillation when she had a pulmonary embolism while at [place]. She has been in sinus rhythm since that time and taking dilt iazem. No chest pain or palpitations. She remains anticoagulated with Eliquis. No cardiac symptoms. EKG shows normal sinus rhythm (9) Intertriginous candidiasis Priority: Secondary Status: Acute Comments: continues with Chlortrimazole which has been helpful (10) Anemia Priority: Secondary Status: Acute Comments: Anemia that has been going on now for the past couple of weeks. It is stable. She is not symptomatic with it. She was scoped when she was in [place]. No acute bleeding noted. Qualifiers: Anemia type: unspecified type Qualified Code(s): D64.9 - Anemia, unspecified (11) Urine culture positive Priority: Secondary Status: Acute Comments: Her urine on admission showed microscopic hematuria. 0-3 white blood cells. Surprisingly the urine culture is growing 50,000-100,000 gram-negative rods. Final report is pending. She has no urinary symptoms. I did not start treatment at this time. (12) DVT prophylaxis Priority: Secondary Status: Chronic Hospital course: Ms. Michel is a 73 year old female with known history of left lower leg ulcer, recent pulmonary embolism, recent transient atrial fibrillation and was discharged from the hospital last week from swing bed status, was readmitted to observation bed with falling episode and inability to walk. On admission she had microscopic hematuria, hypokalemia, acute kidney injury and inability to ambulate and maintain ADLs. Within 24 hours she was showing improvement. She was evaluated by PT and OT in a felt that she would be back to her discharge baseline from the last stay and safe to be discharged to home today. Her potassium improved. Her renal function improved with IV fluids. Her final urine culture is pending. Please see the diagnoses above. Discharge discussed with: patient - Time Spent with Patient Total time spent providing and/or coordinating discharge services: - Discharge Medications Prescriptions: Continued Aspirin Enteric Coated [Aspirin EC] 81 mg PO DAILY Clotrimazole 1% CRM [Lotrimin 1%] 1 appl TP BID #90 tube Diltiazem CD (24hr) [Cardizem CD] 180 mg PO DAILY #30 cap.er.24h Apixaban [Eliquis] 5 mg PO BID #60 tablet Potassium Chloride 10 meq PO BIDWM #60 tab.er.prt Tramadol HCl [Ultram] 50 mg PO QID PRN 7 Days #28 tab PRN Reason: Pain Atorvastatin [Lipitor] 40 mg PO HS #30 tablet Discontinued Amoxicillin/Clavulanate [Augmentin] 875 mg PO BIDWM 7 Days #14 tablet Levofloxacin [Levaquin] 750 mg PO DAILY 7 Days #7 tablet Home Medications: Aspirin Enteric Coated [Aspirin EC] 81 mg PO DAILY 04/24/19 [History] Apixaban [Eliquis] 5 mg PO BID #60 tablet 05/15/19 [Rx] Clotrimazole 1% CRM [Lotrimin 1%] 1 appl TP BID #90 tube 05/15/19 [Rx] Diltiazem CD (24hr) [Cardizem CD] 180 mg PO DAILY #30 cap.er.24h 05/15/19 [Rx] Atorvastatin [Lipitor] 40 mg PO HS #30 tablet 05/16/19 [Rx] Potassium Chloride 10 meq PO BIDWM #60 tab.er.prt 05/16/19 [Rx] Tramadol HCl [Ultram] 50 mg PO QID PRN 7 Days #28 tab 05/16/19 [Rx] Allergies/Adverse Reactions: 3 Allergy/AdvReac Type Severity Reaction Status Date / Time Cefadroxil [From Duricef] Allergy Rash Verified 04/24/19 17:24 sulfamethoxazole Allergy Rash Verified 04/24/19 17:24 [From Bactrim] trimethoprim [From Bactrim] Allergy Rash Verified 04/24/19 17:24 Date of admission: 05/18/19 15:23 Primary care physician: Parker Romero MD Consults: 05/18/19 15:33 Consult to Physical Therapy [CONS] Routine Comment: Evaluate, develop and implement POC Reason for Consult: weakness, deconditioning Does patient have active BEDREST order?: No Is patient medically & hemodynamically stable?: Yes Patient assessed for mobility or mobilized this visit?: No 05/19/19 08:55 Consult to Occupational Therapy [CONS] Routine Comment: Evaluate, develop and implement POC Reason for Consult: weakness, falling episode at home Does patient have active BEDREST order?: No Is patient medically & hemodynamically stable?: Yes Patient assessed for mobility or mobilized this visit?: No Consult to Wound Care [CONS] Routine Reason for Consult: evaluate left lower leg Call Completed: Yes 05/19/19 10:41 Consult to Board Winder [CONS] Routine Reason for SW Consult: Swing bed? ECF? Acute bed? 05/19/19 14:01 Consult to Psychology [CONS] Routine Consulting Provider: Henna Alejandro Reason for Consult: possible depression Call Completed: No Discharging clinician: Parker Romero Anticipated date of discharge: 05/20/19 - Constitutional Vitals: Temp Pulse Resp BP Pulse Ox 97.5 F L 75 16 114/72 96 05/20/19 07:05 05/20/19 07:05 05/20/19 07:05 05/20/19 07:05 05/20/19 07:05 - Patient Status Disposition: Home, Self-Care Condition: Fair Functional capacity at discharge: uses cane/walker Overall status at discharge: patient is progressing back to baseline - Discharge Instructions Follow Up With: Parker Romero MD [Primary Care Provider] - 05/30/19 2:00 pm Forms: ED Satisfaction Letter - Diet and Activity Activity: ambulate only with your walker, as per physical therapy, increase activity as tolerated Diet: low salt diet - VTE Reasons for not Prescribing Prophylaxis: Not indicated-Anticoagulated or INR therapeutic
== END 2019-05-20 15:00 | disposition home or self-care (01) ==
LOC: INPGRE 11:36 → EMEROOGRE 11:36 → INPGRE 15:45
PROVIDERS: ADMIT Family Medicine; ATTEND Family Medicine